=== PATIENT | male | born 1945 | race Caucasian/White ===

== ENCOUNTER 2016-09-17 11:00 | Outpatient (CLI) ==
[2016-01-23 17:10] VITALS: BMI 33.7
--- NOTE | 2016-09-17 12:01 | DI ---
EXAM: Two views of the chest. History: Cough. Comparison: Chest radiograph 01/23/2016 Findings: Heart remains mildly enlarged. No definite acute infiltrates. No appreciable pleural fl uid and no pneumothorax. Calcified granulomas are again seen within the thorax. No acute osseous a bnormalities. Impression: Mild cardiomegaly without acute disease in the chest.
== END 2016-09-17 11:01 | disposition home or self-care (01) ==
LOC: RAD 11:00
PROVIDERS: ATTEND Family Medicine
DX: R05 Cough (principal)

== ENCOUNTER 2017-06-27 08:27 | Day surgery (SDC) | payer OTHER ==
[2016-01-23 17:10] VITALS: BMI 33.7
[2017-06-27] MEDS ORDERED: LIDOCAINE 1% 20 ML MDV ID STA (09:07)
[2017-06-27] MEDS ORDERED: VERSED ONE (09:55)
[2017-06-27] MEDS ORDERED: DIPRIVAN 20 ML VIAL IVP ONE (09:55)
[2017-06-27 14:49] VITALS: BP 154/90; TEMP 97.5
--- NOTE | 2017-06-28 07:06 | OP ---
PROCEDURE: COLONOSCOPY TO THE CECUM. ENDOSCOPIST: Maryjane CHAPA M.D. INDICATION: HISTORY OF POLYPS. DATE OF LAST COLONOSCOPY 2013. INSTRUMENT: VeryLastRoom-[id number]. MEDICATION: PER ANESTHESIA. PROCEDURE: The patient was positioned for colonoscopy. The digital rectal exam was negative. The colonoscope was inserted through the anus and advanced to the cecum. The cecum was identified using the ileocecal valve and the appendiceal orifice as landmarks. The scope was slowly withdrawn through an adequately prepped colon. Two small polyps were removed in the cecal pit using snare cautery. Diverticulosis noted throughout the remaining colon, most significant in the left colon. The retroflex exam was otherwise normal. Withdrawal time 10 minutes , 4 seconds. PLAN: 1. Repeat in 5 years for surveillance after review of his pathology. CC: DR. MARKELL UMANA
== END 2017-06-27 10:50 | disposition home or self-care (01) ==
LOC: SURG 08:27
PROVIDERS: ATTEND Internal Medicine Gastroenterology
DX: Z09 Encounter for follow-up examination after completed treatment for conditions other than malignant neoplasm (principal); Z86.010 Personal history of colon polyps; D12.0 Benign neoplasm of cecum; K57.30 Diverticulosis of large intestine without perforation or abscess without bleeding

== ENCOUNTER 2017-09-27 15:59 | Outpatient (CLI) ==
[2016-01-23 17:10] VITALS: BMI 33.7
--- NOTE | 2017-09-27 16:26 | DI ---
EXAM: Cervical spine seven views HISTORY: Neck pain. FINDINGS: No comparison. General bone density appears minimally decreased. No scoliosis. Lateral masses of C1 and C2 are normally aligned and the odontoid process is intact. Mild diffuse degenerati ve changes of the spine mainly involving the facets. There is no noticeable spondylolisthesis. The spinal alignment is stable with flexion and extension. IMPRESSION: Diffuse mild to moderate degenerative changes of the spine mainly involving the facets.
== END 2017-09-27 16:00 | disposition home or self-care (01) ==
LOC: RAD 15:59
PROVIDERS: ATTEND Physician Assistant
DX: M54.2 Cervicalgia (principal)

== ENCOUNTER 2017-10-20 08:30 | Outpatient (RCR) ==
[2016-01-23 17:10] VITALS: BMI 33.7
--- NOTE | 2017-10-14 12:06 | RS.OPPTEV2 ---
Date of Note: 10/14/17 Visit #: 1 Date of Evaluation: 10/14/17 Payer Source: MEDICARE Surgery Performed?: No Treatment Diagnosis: cervical pain History of Condition/Mechanism of Injury:: pt reports has had neck pain for years, however has become worse over the past year. Prior Level of Function.....Patient was independent with: ADL's, Self Care, Work /Vocation, Ambulation/Mobility, Community Integration/Access Level of Function: pt states he normally works until 5pm, however due to neck pain and [place] has been stopping work at 3-330 Functional Limitations: Sleep, Self Care, ADL's, Lifting, Bending, Squatting Current Subjective/complaints:: pt states his neck pain is worsening, and had increased pain which leads to [place]. pt states feels it affects his concentration. Treatment Side (optional): N/A *Precautions: n/a Medical History Medical History: Unremarkable, Hypertension, CVA/TIA Surgical History Comments:: Cataract surgery 2012. Smoking Status: Never smoker Diagnostic Testing/Imaging:: cervical spine xray: diffuse mild to moderate degenerative changes of the spine mainly involving the facets. Hx Home Medications: gabapentin, fenofibrate, clopidogrel, losartin, meclizine, atorvastatin Patient's Goals: decrease neck pain Pain Assessment - Pain Description Pain Location: cervical pain L worse than R Pain Description: Tightness, Sharp, Chronic Current Pain Intensity: 5 Worst Pain Intensity: 8 Functional Outcome Measure Neck Disability Index: 21 (58%) - G Codes & Severity Modifier G Codes & Modifier: body position current CK. body position goal CI Source of G Code score: neck disability index Observation - Observation Posture: Forward Head, Rounded Shoulders, Increased Thoracic Kyphosis, Decreased Lumbar Lordosis Handedness: Right Gait - Gait Pattern General Gait Pattern Observation: Crouched Gait Gait Comments: pt amb with flexed posture General Range of Motion: WFL's BUE and LE with pain in L shld with ROM Muscle Strength: RUE 5/5. LUE grossly 4+/5 with pain L shld. BLE 5/5 - ROM Cervical Spine Range of Motion Limitations: Soft Tissue Tightness, Muscle Weakness, Pain Comments: pt cervical flex WFL's, ext significantly limited, cervical rotation to L worse than R, Lat sidebending limited B - Strength Cervical Extension: 3- Fair- Cervical Flexion: 4- Good- Cervical Rotation: 3- Fair- - Special Tests Foraminal Distraction: Positive Foraminal Compression: Negative Left, Negative Right Shoulder ROM: Bilaterally WFL's Shoulder Muscle Strength: Right WFL's - Left Shoulder Strength Left Shoulder Flexion: 4+ Good + Left Shoulder Extension: 4 Good - Special Tests Shoulder Empty Can (Supraspinatus) Test: Negative Left Shoulder Speed's Sign Test: Positive Left Comments: pt with pain in area of biceps tendon on L Palpation Palpation Findings: Tenderness, Trigger Point, Muscle Guarding Comments:: pt with tenderness cervical paraspinal muscles, trigger points noted in L upper trap, as well as paraspinals. Muscle guarding noted throughout cervical musculature L worse than R. Sensation - Sensation Right Upper Extremity: Impaired Left Upper Extremity: Impaired Right Lower Extremity: Intact/Normal Left Lower Extremity: Intact/Normal Comments: occasional numbness and tingling B hands Balance - Sitting Balance Static Sitting Balance: Normal Dynamic Sitting Balance: Normal - Standing Balance Static Standing Balance: Normal Dynamic Standing Balance: Normal - Treatment Modality: Electrical Stim Unattended Parameters/Method Applied: IFC x 20 mins at 12ma Treatment Area: cervical spine Patient Position: Sitting - Heat/Cryotherapy Treatment: Cryotherapy Comments:: cervical spine Interventions - Exercise/Activities/Manual Therapy Exercises/Activities: pt performed cervical retraction, upper trap stretch, scalene stretch, scapular retraction. Manual Therapy: n/a HOME EXERCISE PROGRAM: pt given written HEP including upper trap stretch, scalene stretch, corner stretch, cervical retraction, scapular retraction - Charges Timed Code Treatment Minutes: 42 Total Treatment Time: 61 Procedures billed for this date of service:: eval med, estim unattended, cp EVALUATION COMPLEXITY LEVEL EVALUATION COMPLEXITY LEVEL: HISTORY: Medium (TIA, HTN, cervical pain), EXAM OF BODY SYSTEMS: Medium (pain, posture, ROM, strength), CLINICAL PRESENTATION: Medium (evolving), CLINICAL DECISION MAKING: Medium Assessment Assessment: pt presents with cervical pain, increased muscle tightness, cervical paraspinal, upper trap, scalenes as well as limited cervical ROM. Patient Education: Home Exercise Program, Education of Plan of Care Rehab Potential: Good Short Term Goals Goal #1: pt independent with initial HEP Goal to be met by: 10/28/17 Goal #2: pt rate pain <5/10 cervical Goal to be met by: 10/28/17 Goal #3: pt able to perform cervical ext to neutral Goal to be met by: 10/28/17 Goal #4: Decreased tightness upper trap and scalene. Goal to be met by: 10/28/17 [employer]n [employer] Goals Goal #1: pt rate pain <3/10 Goal to be met by: 11/11/17 Goal #2: pt with cervical ROM WFL's Goal to be met by: 11/11/17 Goal #3: pt able to work full 8 hours with decreased pain Goal to be met by: 11/11/17 Goal #4: . Plan - Treatment to be Provided Procedures: Therapeutic Exercises, Therapeutic Activity, Manual Therapy, Patient Education Modalities: Electrical Stimulation, Ultrasound/Phonophoresis, Class IV Laser, Cryotherapy, Hot Packs, Mechanical Traction - Treatment Plan Frequency: 2-3x a week Duration: 4 weeks ORDER # VISITS AND/OR THROUGH DATE: 11/11/17 - Treatment Code (1) Cervical pain Code(s): M54.2 - CERVICALGIA (2) Muscle tightness Code(s): M62.89 - OTHER SPECIFIED DISORDERS OF MUSCLE
--- NOTE | 2017-10-18 14:33 | RS.OPPTDN ---
Subjective Date of Note: 10/18/17 Visit #: 2 Date of Evaluation: 10/14/17 Payer Source: MEDICARE Treatment Diagnosis: cervical pain Current Subjective/complaints:: Patient reports moderate neck pain today ,with tingling into both UE ' s and hands,worse in the L hand as compared to the R . *Precautions: n/a Pain Assessment - Pain Description Pain Location: neck , UE's and hands Pain Description: Radiating, Aching Current Pain Intensity: 4/10 Other Comments regarding Pain:: The pain does not interfere with sleeping . - Treatment Modality: Ultrasound Parameters/Method Applied: 10 mins. @ 1.5 w/cm2 to cervical/UT's. Patient Position: Sitting - Heat/Cryotherapy Treatment: Hot Pack (20 mins. prior to US and traction.) - Traction Treatment Method: Mechanical, Intermittent, Cervical Patient Position: Supine Amount of Force Applied: 15 Hold Time: 30 secs. Rest Time: 5 secs. Duration of treatment: 15 mins. Interventions - Exercise/Activities/Manual Therapy Exercises/Activities: HEP review only today for stretchimng. Total minutes of Exercise: 0 Manual Therapy: n/a Total minutes of Manual Therapy: 0 HOME EXERCISE PROGRAM: pt given written HEP including upper trap stretch, scalene stretch, corner stretch, cervical retraction, scapular retraction - Charges Timed Code Treatment Minutes: 25 Total Treatment Time: 45 Procedures billed for this date of service:: hp,US,traction Assessment: Tolerates treatment well,is attentive to HEP recommendations.He has no increase in pain during traction today.his cervical pin does not currently affect his sleep. Patient Education: Body/Joint mechanics, Home Exercise Program, Education of Plan of Care Short Term Goals Goal #1: pt independent with initial HEP Goal to be met by: 10/28/17 Progress towards Goal:: Progressing Goal #2: pt rate pain <5/10 cervical Goal to be met by: 10/28/17 Progress towards Goal:: Progressing Goal #3: pt able to perform cervical ext to neutral Goal to be met by: 10/28/17 Goal #4: Decreased tightness upper trap and scalene. Goal to be met by: 10/28/17 Assisted Goals Goal #1: pt rate pain <3/10 Goal to be met by: 11/11/17 Goal #2: pt with cervical ROM WFL's Goal to be met by: 11/11/17 Goal #3: pt able to work full 8 hours with decreased pain Goal to be met by: 11/11/17 Goal #4: . Plan PLAN OF CARE EXPIRES ON:: 11/11/17 ORDER # VISITS AND/OR THROUGH DATE: 11/11/17 PLAN: Continue PT to improve cervical posture,eliminate /reduce pain,educate patient for joint protection.
--- NOTE | 2017-10-20 09:49 | RS.OPPTDN ---
Subjective Date of Note: 10/20/17 Visit #: 3 Date of Evaluation: 10/14/17 Payer Source: MEDICARE Treatment Diagnosis: cervical pain Current Subjective/complaints:: Patient reports feeling better today,less soreness present ,feels it is easier to hold his head more upright. *Precautions: n/a Pain Assessment - Pain Description Pain Location: cervical /upper traps Pain Description: Tightness, Dull, Aching Current Pain Intensity: 0 - Treatment Modality: Ultrasound Parameters/Method Applied: 10 mins. @ 1.5 w/cm2,continuous mode to cervical /UT area. Patient Position: Sitting - Heat/Cryotherapy Treatment: Hot Pack (20 mins. prior to US and exercises) - Traction Treatment Method: Mechanical, Intermittent, Cervical Patient Position: Supine Amount of Force Applied: 16-17 Hold Time: 30 secs. Rest Time: 5 secs. Duration of treatment: 20 mins. Traction Treatment Comment: Tolerates well. Interventions - Exercise/Activities/Manual Therapy Exercises/Activities: HEP review ,including stretches ,posture awareness, ergonomics. Total minutes of Exercise: 0 Manual Therapy: n/a Total minutes of Manual Therapy: 0 HOME EXERCISE PROGRAM: pt given written HEP including upper trap stretch, scalene stretch, corner stretch, cervical retraction, scapular retraction - Charges Timed Code Treatment Minutes: 30 Total Treatment Time: 50 Procedures billed for this date of service:: hp,US,traction Assessment: Patient reports the intensity and duration of neck pain is improving.He has good understanding of HEP.He demos improved ability to extend the neck with less difficulty.He is compliant to recommendations of the therapy staff. Patient Education: Education of diagnosis, Body/Joint mechanics, Home Exercise Program, Home Safety, Activity Modification, Education of Plan of Care Patient demonstrates compliance with HEP?: Yes Short Term Goals Goal #1: pt independent with initial HEP Goal to be met by: 10/28/17 Progress towards Goal:: Progressing Goal #2: pt rate pain <5/10 cervical Goal to be met by: 10/28/17 Progress towards Goal:: Progressing Goal #3: pt able to perform cervical ext to neutral Goal to be met by: 10/28/17 Progress towards Goal:: Progressing Goal #4: Decreased tightness upper trap and scalene. Goal to be met by: 10/28/17 Progress towards Goal:: Progressing Care Home Goals Goal #1: pt rate pain <3/10 Goal to be met by: 11/11/17 Goal #2: pt with cervical ROM WFL's Goal to be met by: 11/11/17 Progress towards goal: Progressing Goal #3: pt able to work full 8 hours with decreased pain Goal to be met by: 11/11/17 Progress towards goal: Progressing Goal #4: . Plan PLAN OF CARE EXPIRES ON:: 11/11/17 ORDER # VISITS AND/OR THROUGH DATE: 11/11/17 PLAN: Continue PT to redice/eliminate cervical pain.
== END 2017-10-20 23:59 | disposition short-term general hospital (02) ==
PROVIDERS: ATTEND Physician Assistant
DX: M54.2 Cervicalgia (principal)

== ENCOUNTER 2017-11-10 08:00 | Outpatient (RCR) ==
[2016-01-23 17:10] VITALS: BMI 33.7
--- NOTE | 2017-10-25 09:13 | RS.OPPTDN ---
Subjective Date of Note: 10/25/17 Visit #: 4 Date of Evaluation: 10/14/17 Payer Source: MEDICARE Treatment Diagnosis: cervical pain Current Subjective/complaints:: Patient reports generally around 3:30 in the afternoon the neck discomfort elevates,making it difficult to concentrate.He has no pain at this time.We discussed for him to assess his work environment , to assist with positioning of his head while reading,etc. *Precautions: n/a Pain Assessment - Pain Description Pain Location: neck Pain Description: Dull, Aching Current Pain Intensity: 0 Worst Pain Intensity: 8 - Treatment Modality: Ultrasound Parameters/Method Applied: 10 mins. @ 1.5 w/cm2 to cervical /upper traps., continuous mode. Patient Position: Sitting - Heat/Cryotherapy Treatment: Hot Pack (20 mins. prior to US and manual therapy.) Interventions - Exercise/Activities/Manual Therapy Exercises/Activities: HEP review ,including stretches ,posture awareness, ergonomics. Total minutes of Exercise: 0 Manual Therapy: 20 mins. deep tissue massage to upper traps,/cervical region . Total minutes of Manual Therapy: 20 HOME EXERCISE PROGRAM: pt given written HEP including upper trap stretch, scalene stretch, corner stretch, cervical retraction, scapular retraction - Charges Timed Code Treatment Minutes: 30 Total Treatment Time: 50 Procedures billed for this date of service:: hp,US,manual therepy Assessment: Patient has good erythmic response from soft tissue mobilizations.He has moderate increased tone in the upper traps ,as he presents with forward head posturing.He is more aware of head positioning and posture .He reports no difficulty with HEP. Patient Education: Education of diagnosis, Body/Joint mechanics, Home Exercise Program, Home Safety, Activity Modification, Education of Plan of Care Patient demonstrates compliance with HEP?: Yes Short Term Goals Goal #1: pt independent with initial HEP Goal to be met by: 10/28/17 Progress towards Goal:: Progressing Goal #2: pt rate pain <5/10 cervical Goal to be met by: 10/28/17 Progress towards Goal:: Progressing Goal #3: pt able to perform cervical ext to neutral Goal to be met by: 10/28/17 Progress towards Goal:: Progressing Goal #4: Decreased tightness upper trap and scalene. Goal to be met by: 10/28/17 Progress towards Goal:: Progressing Manager Social Work Goals Goal #1: pt rate pain <3/10 Goal to be met by: 11/11/17 Goal #2: pt with cervical ROM WFL's Goal to be met by: 11/11/17 Progress towards goal: Progressing Goal #3: pt able to work full 8 hours with decreased pain Goal to be met by: 11/11/17 Progress towards goal: Progressing Goal #4: . Plan PLAN OF CARE EXPIRES ON:: 11/11/17 ORDER # VISITS AND/OR THROUGH DATE: 11/11/17 PLAN: Continue PT to reduce/eliminate cervical pain ,improve awareness of posture .
--- NOTE | 2017-10-27 09:38 | RS.OPPTDN ---
Subjective Date of Note: 10/27/17 Visit #: 5 Date of Evaluation: 10/14/17 Payer Source: MEDICARE Treatment Diagnosis: cervical pain Current Subjective/complaints:: Patient says treatment seems to be helping. Reports less tension in his neck and he can retract his neck much easier allowing him to now lay supine with actually causing relief. Mr. Jules admits to performing HEP with improved ease as well. *Precautions: n/a Pain Assessment - Pain Description Pain Location: L UT > R - Treatment Modality: Ultrasound Parameters/Method Applied: continuous @ 1.5 w/cm2 x 10 mins > on L than R UT Patient Position: Sitting - Heat/Cryotherapy Treatment: Hot Pack (cervical in sitting x 15 mins) Interventions - Exercise/Activities/Manual Therapy Exercises/Activities: Patient review of HEP, postural techniques for home/work, and given green tband to use for scap retraction. Patient performed several reps in dept with correctly and without difficulty. Manual Therapy: 20 mins. deep tissue massage to upper traps,/cervical region including cross stretching for the L SB. HOME EXERCISE PROGRAM: pt given written HEP including upper trap stretch, scalene stretch, corner stretch, cervical retraction, scapular retraction - Charges Timed Code Treatment Minutes: 30 Total Treatment Time: 45 Procedures billed for this date of service:: hp, u/s, mt Assessment: Patient appears to be responding well to treatment demo improved cervical retraction, decreased muscle guarding, and improved admission of laying supine and concentration. Patient Education: Education of diagnosis, Body/Joint mechanics, Home Exercise Program Patient demonstrates compliance with HEP?: Yes Short Term Goals Goal #1: pt independent with initial HEP Goal to be met by: 10/28/17 Progress towards Goal:: Progressing Goal #2: pt rate pain <5/10 cervical Goal to be met by: 10/28/17 Progress towards Goal:: Progressing Goal #3: pt able to perform cervical ext to neutral Goal to be met by: 10/28/17 Progress towards Goal:: Progressing Goal #4: Decreased tightness upper trap and scalene. Goal to be met by: 10/28/17 Progress towards Goal:: Progressing Sheet Folder Goals Goal #1: pt rate pain <3/10 Goal to be met by: 11/11/17 Goal #2: pt with cervical ROM WFL's Goal to be met by: 11/11/17 Progress towards goal: Progressing Goal #3: pt able to work full 8 hours with decreased pain Goal to be met by: 11/11/17 Progress towards goal: Progressing Goal #4: . Plan PLAN OF CARE EXPIRES ON:: 11/11/17 ORDER # VISITS AND/OR THROUGH DATE: 11/11/17 PLAN: Patient to continue with modalities and progressing postural strengthening.
--- NOTE | 2017-10-28 09:29 | RS.OPPTDN ---
Subjective Date of Note: 10/28/17 Visit #: 6 Date of Evaluation: 10/14/17 Payer Source: MEDICARE Treatment Diagnosis: cervical pain Current Subjective/complaints:: Patient continues to feel the therapy is helping.No current pain . *Precautions: n/a Pain Assessment - Pain Description Pain Location: neck Pain Description: Tightness, Dull, Aching Current Pain Intensity: 0 - Treatment Modality: Ultrasound Parameters/Method Applied: 10 mins. ,continuous mode @ 1.5 w/cm2 to cervical / upper traps region. Patient Position: Sitting - Heat/Cryotherapy Treatment: Hot Pack (20 mins. prior to US and manual therapy.) Interventions - Exercise/Activities/Manual Therapy Exercises/Activities: N/A today . Manual Therapy: 20 mins. deep tissue massage to upper traps,/cervical region. Total minutes of Manual Therapy: 20 HOME EXERCISE PROGRAM: pt given written HEP including upper trap stretch, scalene stretch, corner stretch, cervical retraction, scapular retraction - Charges Timed Code Treatment Minutes: 30 Total Treatment Time: 50 Procedures billed for this date of service:: hp,US,manual therapy Assessment: Patient continues to be compliant to HEP ,is doing the theraband exercises that were added to his HEP.He reprts resting more comfortably in supine.feels the cervical area is less tight . Patient Education: Body/Joint mechanics, Home Exercise Program, Activity Modification Patient demonstrates compliance with HEP?: Yes Short Term Goals Goal #1: pt independent with initial HEP Goal to be met by: 10/28/17 Progress towards Goal:: Partially Met Goal #2: pt rate pain <5/10 cervical Goal to be met by: 10/28/17 Progress towards Goal:: Partially Met Goal #3: pt able to perform cervical ext to neutral Goal to be met by: 10/28/17 Progress towards Goal:: Progressing Goal #4: Decreased tightness upper trap and scalene. Goal to be met by: 10/28/17 Progress towards Goal:: Progressing Executive Personal Assistant Goals Goal #1: pt rate pain <3/10 Goal to be met by: 11/11/17 Progress towards goal: Progressing Goal #2: pt with cervical ROM WFL's Goal to be met by: 11/11/17 Progress towards goal: Partially Met Goal #3: pt able to work full 8 hours with decreased pain Goal to be met by: 11/11/17 Progress towards goal: Progressing Goal #4: . Plan PLAN OF CARE EXPIRES ON:: 11/11/17 ORDER # VISITS AND/OR THROUGH DATE: 11/11/17 PLAN: Continue PT to improve posture,eliminate or reduce cervical pain .
--- NOTE | 2017-11-01 09:21 | RS.OPPTDN ---
Subjective Date of Note: 11/01/17 Visit #: 7 Date of Evaluation: 10/14/17 Payer Source: MEDICARE Treatment Diagnosis: cervical pain Current Subjective/complaints:: Reports the therapy is helping,no current pain present .He continues to do his HEP. *Precautions: n/a Pain Assessment - Pain Description Pain Location: cervical/upper traps Current Pain Intensity: 0 - Treatment Modality: Ultrasound Parameters/Method Applied: 10 mins. @ 1.5 w/cm2,continuous mode to cervical/ upper traps. Patient Position: Sitting - Heat/Cryotherapy Treatment: Hot Pack (20 mins. prior to US and manual therapy) Interventions - Exercise/Activities/Manual Therapy Exercises/Activities: HEP review only. Total minutes of Exercise: 0 Manual Therapy: 20 mins. deep tissue massage to upper traps,/cervical region. Total minutes of Manual Therapy: 20 HOME EXERCISE PROGRAM: pt given written HEP including upper trap stretch, scalene stretch, corner stretch, cervical retraction, scapular retraction - Charges Timed Code Treatment Minutes: 30 Total Treatment Time: 50 Procedures billed for this date of service:: hp,US,manual therapy Assessment: Patient has decreased tone in the upper traps,improved cervical motion with less pain present.He is very attentive and compliant to HEP.He does still have headaches ,with different levels of pain ,dependemt upon his amount of daily activities. Patient Education: Home Exercise Program, Activity Modification, Education of Plan of Care Patient demonstrates compliance with HEP?: Yes Short Term Goals Goal #1: pt independent with initial HEP Goal to be met by: 10/28/17 Progress towards Goal:: Met Goal #2: pt rate pain <5/10 cervical Goal to be met by: 10/28/17 Progress towards Goal:: Partially Met Goal #3: pt able to perform cervical ext to neutral Goal to be met by: 10/28/17 Progress towards Goal:: Partially Met Goal #4: Decreased tightness upper trap and scalene. Goal to be met by: 10/28/17 Progress towards Goal:: Progressing [employer] Binding Folder Goals Goal #1: pt rate pain <3/10 Goal to be met by: 11/11/17 Progress towards goal: Progressing Goal #2: pt with cervical ROM WFL's Goal to be met by: 11/11/17 Progress towards goal: Partially Met Goal #3: pt able to work full 8 hours with decreased pain Goal to be met by: 11/11/17 Progress towards goal: Progressing Goal #4: . Plan PLAN OF CARE EXPIRES ON:: 11/11/17 ORDER # VISITS AND/OR THROUGH DATE: 11/11/17 PLAN: Continue PT to reduce forward head rounded shoulders posture ,reduce or eliminate cervical pain.
--- NOTE | 2017-11-04 09:06 | RS.OPPTDN ---
Subjective Date of Note: 11/04/17 Visit #: 8 Date of Evaluation: 10/14/17 Payer Source: MEDICARE Treatment Diagnosis: cervical pain Current Subjective/complaints:: Patient reprts no headache yesterday afternoon at work,continues to feel better. *Precautions: n/a Pain Assessment - Pain Description Pain Location: cervical /upper traps Current Pain Intensity: 0 - Treatment Modality: Ultrasound Parameters/Method Applied: 10 mins. @ 1.5 w/cm2,continuous mode to cervical/ upper traps redion. Patient Position: Sitting - Heat/Cryotherapy Treatment: Hot Pack (20 mins. prior to US) Interventions - Exercise/Activities/Manual Therapy Exercises/Activities: N/A Total minutes of Exercise: 0 Manual Therapy: 20 mins. deep tissue massage to upper traps,/cervical region , and medial borders of scapulae . Total minutes of Manual Therapy: 20 HOME EXERCISE PROGRAM: pt given written HEP including upper trap stretch, scalene stretch, corner stretch, cervical retraction, scapular retraction - Charges Timed Code Treatment Minutes: 30 Total Treatment Time: 50 Procedures billed for this date of service:: hp,US,manual Assessment: Proressing well,less frequencyand intensity of neck pain and headaches.He is compliant to HEP,has better cervical ROM . Patient Education: Education of diagnosis, Body/Joint mechanics, Home Exercise Program, Home Safety, Activity Modification, Education of Plan of Care Patient demonstrates compliance with HEP?: Yes Short Term Goals Goal #1: pt independent with initial HEP Goal to be met by: 10/28/17 Progress towards Goal:: Met Goal #2: pt rate pain <5/10 cervical Goal to be met by: 10/28/17 Progress towards Goal:: Partially Met Goal #3: pt able to perform cervical ext to neutral Goal to be met by: 10/28/17 Progress towards Goal:: Partially Met Goal #4: Decreased tightness upper trap and scalene. Goal to be met by: 10/28/17 Progress towards Goal:: Progressing [employer] Goals Goal #1: pt rate pain <3/10 Goal to be met by: 11/11/17 Progress towards goal: Progressing Goal #2: pt with cervical ROM WFL's Goal to be met by: 11/11/17 Progress towards goal: Partially Met Goal #3: pt able to work full 8 hours with decreased pain Goal to be met by: 11/11/17 Progress towards goal: Progressing Goal #4: . Plan PLAN OF CARE EXPIRES ON:: 11/11/17 ORDER # VISITS AND/OR THROUGH DATE: 11/11/17 PLAN: Continue PT to improve cervical posture ,reduce/eliminate headaches and cervical pain.
--- NOTE | 2017-11-08 09:06 | RS.OPPTDN ---
Subjective Date of Note: 11/08/17 Visit #: 9 Date of Evaluation: 10/14/17 Payer Source: MEDICARE Treatment Diagnosis: cervical pain Current Subjective/complaints:: Patient reports his cervical extension and more upright posture in general feels more natural now.He is compliant to HEP. *Precautions: n/a Pain Assessment - Pain Description Pain Location: neck/upper traps when present Current Pain Intensity: 0 - Treatment Modality: Ultrasound Parameters/Method Applied: 10 mins. @ 1.5 w/cm2,continuous mode to cervical/ uppertrap sregion. Patient Position: Sitting - Heat/Cryotherapy Treatment: Hot Pack (20 mins. prior to US and manual therapy) Interventions - Exercise/Activities/Manual Therapy Exercises/Activities: Independent with HEP. Total minutes of Exercise: 0 Manual Therapy: 20 mins. deep tissue massage to upper traps,/cervical region , and medial borders of scapulae . Total minutes of Manual Therapy: 20 HOME EXERCISE PROGRAM: pt given written HEP including upper trap stretch, scalene stretch, corner stretch, cervical retraction, scapular retraction - Charges Timed Code Treatment Minutes: 30 Total Treatment Time: 50 Procedures billed for this date of service:: hp,US,manual therapy Assessment: Patient progressing well,enters clionic today with more erect posture ,especially in the cervical area ( better extension ).He is tolerating his work day with less frequent headaches.He has good understanding of HEP, increased awareness of posture and ergonomics. Patient Education: Body/Joint mechanics, Home Exercise Program, Education of Plan of Care Patient demonstrates compliance with HEP?: Yes Short Term Goals Goal #1: pt independent with initial HEP Goal to be met by: 10/28/17 Progress towards Goal:: Met Goal #2: pt rate pain <5/10 cervical Goal to be met by: 10/28/17 Progress towards Goal:: Partially Met Goal #3: pt able to perform cervical ext to neutral Goal to be met by: 10/28/17 Progress towards Goal:: Partially Met Goal #4: Decreased tightness upper trap and scalene. 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 Plan PLAN OF CARE EXPIRES ON:: 11/11/17 ORDER # VISITS AND/OR THROUGH DATE: 11/11/17 PLAN: Cotin[facility] PT to eliminate headaches ,cervical pain ,improve sitting / standing posture,improve overall level of function.
--- NOTE | 2017-11-10 09:20 | RS.OPPTDN ---
Subjective Date of Note: 11/10/17 Visit #: 10 Date of Evaluation: 10/14/17 Payer Source: MEDICARE Treatment Diagnosis: cervical pain Current Subjective/complaints:: Pleased with his progress,agrees with D/C plan today. *Precautions: n/a Pain Assessment - Pain Description Pain Location: cervical/uppertraps Current Pain Intensity: 0 - Heat/Cryotherapy Treatment: Hot Pack (20 mins. prior to manual therapy) Interventions - Exercise/Activities/Manual Therapy Exercises/Activities: Independent with HEP. Total minutes of Exercise: 0 Manual Therapy: 30 mins. deep tissue massage to upper traps,/cervical region , and medial borders of scapulae . Total minutes of Manual Therapy: 30 HOME EXERCISE PROGRAM: pt given written HEP including upper trap stretch, scalene stretch, corner stretch, cervical retraction, scapular retraction - Objective Findings Observations,measurements,etc.: Cervical extension to neutral actively,rotation to 45 L and R. - Charges Timed Code Treatment Minutes: 30 Total Treatment Time: 50 Procedures billed for this date of service:: hp,ex 2 Assessment: Patient progressed well ,met rehab goals .He is aware of D/C plan today. Patient Education: Education of diagnosis, Body/Joint mechanics, Home Exercise Program, Home Safety, Activity Modification, Education of Plan of Care Patient demonstrates compliance with HEP?: Yes Short Term Goals Goal #1: pt independent with initial HEP Goal to be met by: 10/28/17 Progress towards Goal:: Met Goal #2: pt rate pain <5/10 cervical Goal to be met by: 10/28/17 Progress towards Goal:: Met Goal #3: pt able to perform cervical ext to neutral Goal to be met by: 10/28/17 Progress towards Goal:: Met Goal #4: Decreased tightness upper trap and scalene. 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 Plan PLAN OF CARE EXPIRES ON:: 11/11/17 ORDER # VISITS AND/OR THROUGH DATE: 11/11/17 PLAN: D/C
--- NOTE | 2017-11-14 16:23 | RS.OPPTDC ---
Date of Discharge: 11/10/17 Date of Evaluation: 10/14/17 Number of Visits: 10 Treatment Diagnosis: cervical pain Current Level of Function: pt with decreased muscle tightness/tone in upper traps. pt with cervical extension to neutral. Rotation to 45 L, R 45 with no pain. Current Complaints/Gains: pt is pleased with his progress, less frequent and less intense headaches and less tingling in hands. pt reports longer distance drives bother him, but tolerates local driving without difficulty. Pain Assessment - Pain Description Pain Location: cervical pain Functional Outcome Measure Neck Disability Index: 13 - G Codes & Severity Modifier G Codes & Modifier: body position goal CI. body position dc CJ Source of G Code score: neck disability index Observation - Observation Posture: Forward Head, Rounded Shoulders, Increased Thoracic Kyphosis, Decreased Lumbar Lordosis Gait - Gait Pattern General Gait Pattern Observation: No Deviations/Normal General Range of Motion: BUe and BLE WFL's Muscle Strength: BUE and LE WFL's Interventions - Exercise/Activities/Manual Therapy Exercises/Activities: na Manual Therapy: n/a HOME EXERCISE PROGRAM: pt given written HEP including upper trap stretch, scalene stretch, corner stretch, cervical retraction, scapular retraction - Charges Timed Code Treatment Minutes: na Total Treatment Time: n/a Procedures billed for this date of service:: n/a Assessment Assessment: pt has met all goals. pt with much improvement with pain and decreased muscle tightness. Patient Education: Home Exercise Program, Education of Plan of Care Rehab Potential: Good Short Term Goals Goal #1: pt independent with initial HEP Goal to be met by: 10/28/17 Progress towards Goal:: Met Goal #2: pt rate pain <5/10 cervical Goal to be met by: 10/28/17 Progress towards Goal:: Met Goal #3: pt able to perform cervical ext to neutral Goal to be met by: 10/28/17 Progress towards Goal:: Met Goal #4: Decreased tightness upper trap and scalene. 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 Plan Reason for Discharge:: All Goals Met
== END 2017-11-19 23:59 ==
PROVIDERS: ATTEND Physician Assistant
DX: M54.2 Cervicalgia (principal); M62.89 Other specified disorders of muscle

== ENCOUNTER 2024-06-20 10:27 | Observation (INO) ==
[2024-06-20 10:43] VITALS: BMI 33.5
[2024-06-20] MEDS: ZOFRAN SDV IVP ONE (10:58)
[2024-06-20] MEDS: MORPHINE 4 MG/ML SYRINGE IVP ONE (11:00)
[2024-06-20 11:04] LABS: BASOPHILS % (AUTO) 0.5 % (0.0-3.0); EOSINOPHILS % (AUTO) 0.6 % (0.0-7.0); HEMATOCRIT 44.6 % (42.0-52.0); HEMOGLOBIN 14.7 g/dl (14.0-18.0); IMMATURE GRANULOCYTE % (AUTO) 0.3 % (0.0-5.0); LYMPHOCYTES # (AUTO) 0.8 K/uL (0.60-3.4); LYMPHOCYTES % (AUTO) 12.6 (10.0-50.0); MEAN CORPUSCULAR HEMOGLOBIN 31.3 pg (27.0-31.0); MEAN CORPUSCULAR VOLUME 95.1 fl (80.0-94.0); MONOCYTES # (AUTO) 0.5 K/uL (0.4-2.0); MONOCYTES % (AUTO) 7.7 (0-10); NEUTROPHILS # (AUTO) 5.1 K/ul (2.0-6.9); NEUTROPHILS % (AUTO) 78.3 % (42.2-75.2); PLATELET COUNT 190 10^3/uL (140-440); RED BLOOD COUNT 4.69 10^6/ul (4.70-6.10); WHITE BLOOD COUNT 6.52 K/ul (4.2-10.2)
--- NOTE | 2024-06-20 11:09 | DI ---
EXAM: CHEST RADIOGRAPH TECHNIQUE: Single frontal chest radiograph. HISTORY: Trauma. COMPARISON: 09/17/1969 and. FINDINGS: Lungs/Pleura: The lungs are clear. There is no pleural effusion. There is no pneumothorax. Lung volu mes are low. Heart: The heart size is normal. Bones: Unremarkable. Other: None. IMPRESSION: 1. No acute findings.
[2024-06-20] MEDS: SODIUM CHLORIDE 1,000 ML IV ONE (11:33)
--- NOTE | 2024-06-20 11:33 | CT ---
EXAM: CT HEAD WITHOUT CONTRAST. HISTORY: Head trauma. COMPARISON: 01/23/2016. TECHNIQUE: Multiple axial images of the brain were obtained from the skull base through the vertex w ithout intravenous contrast. Multiplanar reformats were provided. FINDINGS: There is no intracranial hemorrhage or extraaxial collection. The perez-white differentiat ion is maintained without evidence for acute large vascular territory infarction. There are areas of periventricular and subcortical white matter low attenuation. The cortical sulci and cerebral ventr icles are symmetrically enlarged. The basal cisterns are well visualized. There is no hydrocephalus , mass effect, or midline shift. The paranasal sinuses demonstrate mild mucosal thickening. The mas toid air cells are clear. The calvarium is intact. Since the prior study, there has been no signifi cant interval change. IMPRESSION: 1. No acute intracranial abnormality. 2. Chronic small vessel ischemic changes and atrophy. All CT scans are performed using dose optimization techniques as appropriate to the performed exam an d include at least one of the following: Automated exposure control, adjustment of the mA and/or kV according t o size, and the use of iterative reconstruction technique.
--- NOTE | 2024-06-20 11:34 | CT ---
EXAM: CERVICAL SPINE CT WITHOUT CONTRAST HISTORY: Trauma. TECHNIQUE: CT was performed of the cervical spine. Sagittal and coronal reconstructions were utiliz ed for this examination. COMPARISON: None. FINDINGS: Normal cervical lordosis maintained. Scoliosis. Retrolisthesis of C2 on C3 measuring 0.2 cm. Bigg listhesis of C4 on C5 measuring 0.2 cm. Vertebral body heights are maintained. The dens is intact. Lateral masses C1 are well-aligned. No acute fracture. Endplate degenerative changes and mild disc space narrowing at C6-C7 level. No prevertebral soft tissue swelling. Multilevel degenerative spondylosis resulting in varying degrees of spinal canal stenosis and neural foraminal narrowing. Atelectasis and/or pneumonitis in the right lung base. IMPRESSION: No acute fracture. Mild spondylolisthesis likely degenerative in nature. Consider MRI if occult fracture is suspected.. All CT scans are performed using dose optimization techniques as appropriate to the performed exam an d include at least one of the following: Automated exposure control, adjustment of the mA and/or kV according t o size, and the use of iterative reconstruction technique.
--- NOTE | 2024-06-20 11:38 | CT ---
EXAM: CT SCAN CHEST WITHOUT CONTRAST HISTORY: Trauma COMPARISON: None. FINDINGS: Helically acquired axial images obtained through the thorax without contrast utilizing 5-m m collimation. Sagittal and coronal reconstructions were imaged and reviewed.. The thoracic inlet i s unremarkable. The heart is normal in size with coronary ASVD. There are subcentimeter mediastinal lymph nodes. No consolidation or effusion. Minimal scarring versus atelectasis posterior right upp er lobe area. There is displaced right midclavicular fracture.. The visualized upper abdominal stru ctures are unremarkable. IMPRESSION: No acute intrathoracic findings. Displaced right midclavicular fracture All CT scans are performed using dose optimization techniques as appropriate to the performed exam an d include at least one of the following: Automated exposure control, adjustment of the mA and/or kV according t o size, and the use of iterative reconstruction technique.
[2024-06-20 11:45] LABS: ALANINE AMINOTRANSFERASE 27.5 U/L (0-50); ALBUMIN 4.85 g/dL (3.5-5.0); ALKALINE PHOSPHATASE 65.8 U/L (56-119); ASPARTATE AMINO TRANSFERASE 34.8 U/L (17-59); BILIRUBIN,TOTAL 1.12 mg/dL (0.2-1.3); CALCIUM 9.48 mg/dL (8.4-10.2); CARBON DIOXIDE 21.5 mmol/L (22-30.0); CHLORIDE 103.7 mmol/L (98-107); CREATININE 1.19 mg/dL (0.60-1.10); GLUCOSE 128.6 mg/dL (74-106); LIPASE 326.6 U/L (23-300); POTASSIUM 4.05 mmol/L (3.5-5.1); SODIUM 137.3 mmol/L (134.5-145); TOTAL PROTEIN 8.18 g/dL (6.3-8.2)
[2024-06-20 11:55] LABS: TROPONIN I < 0.012 ng/ml (0.0000-0.120)
[2024-06-20] MEDS ORDERED: VISIPAQUE 320 MG/ML 100ML IVP ONE (12:08)
--- NOTE | 2024-06-20 12:14 | ED.PDOC ---
General ED Provider: Dr. MAGGIE STEWART, DO Chief Complaint: Multiple Trauma Stated Complaint: 79-year-old gentleman brought in by family members with complaints of being hit in the chest by a cow. Evidently it sounds as though it kicked him throwing him backwards against a wall patient did strike his head with an LOC has incomplete recollection of what happened today primary complaint of right shoulder pain and the patient is pending but denies chest pain or that his breathing is an issue. He denies any neck injury but on palpation was tender c-collar was immediately applied. Denies abdominal injuries no lower extremity complaints. Normal state of health prior no recent illness Patient is perseverating somewhat Time Seen by Provider: 06/20/24 10:44 Mode of Arrival: Walk-In Information Source: Patient and Family Primary Care Provider: FLORECITA DE LA TORRE MD Nursing and Triage Documentation Reviewed and Agree: Yes What is Opioid Naive?: *Opioid Naive implies the patient is not already taking opioids or not chronically receiving opioids on a daily basis. *PRN dosing is not "usually" associated with tolerance. *Patients are at higher risk of over-sedation and aspiration. What is Opioid Tolerant?: *Opioid Tolerance implies less than the expected response to an opioid. *Acquired tolerance is defined by the patient taking 60mg of oral morphine daily (or equianalgesic dose of another opioid) for 1 week or more. *Often associated with chronic pain. *May take more than usual dose to achieve desired pain control. Review of Systems Review Of Systems Constitutional: Reports No symptoms Eyes: Reports No symptoms Ears, Nose, Mouth, Throat: Reports No symptoms Respiratory: Reports No symptoms Cardiac: Reports No symptoms GI: Reports No symptoms : Reports No symptoms Musculoskeletal: Denies Neck pain Skin: Reports No symptoms Hematologic/Lymphatic: Reports Other (On Plavix) [facility] Medical History Anal fistula K60.3 - Anal fistula (ICD-10) Prostate cancer C61 - Malignant neoplasm of prostate (ICD-10) Social History Smoking and tobacco status: Never smoker Substance use type: does not use Household members: spouse Housing: house Marital status: M Lives independently: No Current occupational status: employed 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 Pets and animals: Yes (dog and cat) Do you think of yourself as: straight/heterosexual Current gender identity: male Seatbelt use: always Helmet use: Yes Drives intoxicated or rides with intoxicated subway train driver: No Water heater temperature set < 120 degrees: Yes Working smoke detector in home: Yes Fire extinguisher in home: Yes Carbon monoxide detector in home: Yes Firearms in home: Yes Physical Exam Physical Exam Appearance: Reports Ill-appearing Pain Distress: Moderate Eyes: Reports THOM, EOMI and Conjunctiva clear ENT: Reports Nose normal, Oropharynx normal and Other (Right sided hemotympanum otherwise ear exam normal) Neck: Supple (C-collar applied) Respiratory: Reports Airway patent Cardiovascular: Reports RRR GI/: Reports Soft, Nontender, No masses, Bowel sounds normal and No Organomegaly; Denies Tender Musculoskeletal: Reports Other (Full skeletal exam negative except for pain anterior right shoulder. Decreased range of motion) Skin: Reports Warm and Dry Neurological: Reports Sensation intact, Motor intact, Cranial nerves intact and Alert Interpretation EKG Interpretation EKG Interpretation By: ED Physician Time of EKG #1: 11:15 Rate: Normal Rhythm: Sinus EKG Comparison: Other (Twelve-lead EKG as read by me shortly after obtaining sinus rate of 73 with slightly prolonged QRS of 1 4 2 ms with a right bundle branch block there are some global nonspecific T wave changes no evidence of acute ischemia or infarct no STEMI) Re-Evaluation Re-Evaluation Time of Re-Evaluation: 12:11 Status: Improved Vital Signs Stable: Yes Pain Level: Improved Skin: Warm and Dry Neuro: Alert and Oriented X3 CV: RRR Additional Comments: Patient CT head neck and chest all negative except for clavicle fracture on the right. No pneumo. Elevated lipase otherwise labs are coming back fairly normal will get CT abdomen and pelvis complaining of left shoulder pain although able to fully AB duct will get x-ray Re-Evaluation Time of Re-Evaluation: 14:50 Status: Improved Vital Signs Stable: Yes Additional Comments: Other than a isolated clavicle fracture on the right with no pneumo the patient's workup is coming back unremarkable other than elevated lipase but normal LFTs. Patient is beginning to remember a little bit more but still has a fair amount of amnesia he has stopped perseverating. Pain is well- controlled at present. He was temporarily placed on oxygen has been removed and vital stable. I do believe the patient should be monitored for at least 24 hours with questionable repeat imaging. Case discussed with [facility] Garett Zarco who agreed will admit During the patients stay in the Emergency Department, and after a physical exam focused on the patients chief complaint. I have concluded that the patients condition warrants inpatient admission/observation at this time. This decision was made in conjunction with testing done in the ED and after discussing the need for admission with the patient and any family present. This decision was made in conjunction with any testing done, physical exam and information provided by the patient and any family present. I took into consideration discharge but feel that either the patients condition, social supports, access to aftercare, and/or safety justify admission at this time. I have discussed this case with the admitting physician Care was assumed by admitting provider at the time the admission request was placed. I was available for emergencies after that point or if specifically identified here: none This chart was completed using voice recognition dictation software. Please excuse any errors of protection mgr including grammatical, punctuation and spelling errors. Please contact me with any questions regarding this chart Critical Care Note Critical Care Note Total Critical Care Time (mins): 60 Comments: I was called to the bedside for urgent evaluation of the patient for an apparent life-threatening event. I arrived to find the patient with increased work of breathing brought in as a head and chest trauma patient During my initial evaluation I found the patient to be critically Ill and in need of my immediate attention to prevent further deterioration of their condition More than one body system was considered at risk with todays visit. The following are the primary systems identified: Cardiac, respiratory, neuro During the patients ED visit I repeated re-evaluated the patient and their clinical condition reviewed laboratory testing and radiology images and intervening when needed. Obtain an immediate chest x-ray to evaluate for any pneumo and CT imaging to evaluate for neck chest or head injury. As a result of the patients clinical condition and presenting problem I arranged for admission for observation The total amount of my Critical Care time during the patients course in the ED was a minimum of 60 minutes, this excluded any time spent on other services or procedures Course Course 06/20/24 11:00 06/20/24 11:00 Orders, Labs, Meds: Lab Review 06/20/24 06/20/24 11:00 13:42 WBC 6.52 RBC 4.69 L Hgb 14.7 Hct 44.6 MCV 95.1 H MCH 31.3 H MCHC 33.0 RDW Coeff of Daja 13.0 Plt Count 190 Immature Gran % (Auto) 0.3 Neut % (Auto) 78.3 H Lymph % (Auto) 12.6 [place] % (Auto) 7.7 Eos % (Auto) 0.6 Baso % (Auto) 0.5 Neut # (Auto) 5.1 Lymph # (Auto) 0.8 [place] # (Auto) 0.5 Eos # (Auto) 0.0 Baso # (Auto) 0.0 Immature Gran # (Auto) 0.0 Sodium 137.3 Potassium 4.05 Chloride 103.7 Carbon Dioxide 21.5 L Anion Gap 16.15 BUN 16.0 Creatinine 1.19 H Estimated GFR (MDRD) 59.00 BUN/Creatinine Ratio 13.44 Glucose 128.6 H Calcium 9.48 Total Bilirubin 1.12 AST 34.8 ALT 27.5 Alkaline Phosphatase 65.8 Troponin I < 0.012 Total Protein 8.18 Albumin 4.85 Globulin 3.33 Albumin/Globulin Ratio 1.45 Lipase 326.6 H SARS CoV-2 RNA Rapid BELLA Negative Orders Category Date Time Status PLACE PATIENT OBSERVATION .TO MEDS[facility] (MONITORED BED ADMISSION 06/20/24 13:31 Active ) EKG-(ED ONLY) Stat CARDIO 06/20/24 10:52 Completed NPO REMINDER: IMAGING ONCE CARE 06/20/24 12:05 Completed TELEMETRY MONITORING TELE CARE 06/20/24 13:31 Active 2 GRAM SODIUM DIET DIETARY 06/20/24 Dinner Ordered CBC W/ AUTO DIFF Stat LAB 06/20/24 11:00 Completed CMP [COMPREHENSIVE METABOLIC PANEL] Stat LAB 06/20/24 11:00 Completed COVID [SARS COV-2 RNA RAPID BELLA] Stat LAB 06/20/24 13:42 Completed LIPASE Stat LAB 06/20/24 11:00 Completed TROPONIN I Stat LAB 06/20/24 11:00 Completed Morphine Sulfate [Morphine 4 mg/ml Syringe] Meds 06/20/24 10:52 Discontinued 4 mg IVP ONCE ONE Ondansetron HCl/Pf [Zofran Sdv] Meds 06/20/24 10:52 Discontinued 4 mg IVP ONCE ONE Sodium Chloride 0.9% [Sodium Chloride] 1,000 ml Meds 06/20/24 11:28 Discontinued IV BOLUS RESUSCITATION STATUS Routine OTHERS 06/20/24 13:31 Ordered CHEST, 1V AP ONLY Stat RADS 06/20/24 10:[address] ABDOMEN/PELVIS WO CONTRAST Stat RADS 06/20/24 12:[address] CERVICAL SPINE W/O CONTRAST Stat RADS 06/20/24 10:[address] CHEST W/O CONTRAST Stat RADS 06/20/24 10:[address] HEAD W/O CONTRAST Stat RADS 06/20/24 10:52 Completed SHOULDER, LEFT MIN 2V Stat RADS 06/20/24 12:04 Completed Medications Generic Name Dose Route Start Last Admin Trade Name Freq PRN Reason Stop Dose Admin Morphine Sulfate 2 mg 06/20/24 15:17 Morphine Sulfate 2 Mg/Ml Syringe IVP Q6H PRN MODERATE PAIN Tramadol HCl 50 mg 06/20/24 15:17 Tramadol Hcl 50 Mg Tablet PO Q6H PRN Analgesia Discontinued Medications Generic Name Dose Route Start Last Admin Trade Name Freq PRN Reason Stop Dose Admin Sodium Chloride 1,000 mls @ 1,000 mls/hr 06/20/24 11:28 06/20/24 14:36 Sodium Chloride IV 06/20/24 12:27 Infused BOLUS ONE Infusion Morphine Sulfate 4 mg 06/20/24 10:52 06/20/24 11:00 Morphine Sulfate 4 Mg/Ml Syringe IVP 06/20/24 10:53 4 mg ONCE ONE Administration Ondansetron HCl 4 mg 06/20/24 10:52 06/20/24 10:58 Ondansetron Hcl/Pf 4 Mg/2 Ml Sdv IVP 06/20/24 10:53 4 mg ONCE ONE Administration Vital Signs: Temp Pulse Resp BP Pulse Ox 06/20/24 10:36 98.0 F 74 30 H 167/94 H 100 Shortly after interviewing and examining the patient, treatment was initiated. Orders were placed for appropriate testing and treatment specific to my findings, appropriate guidelines and the patients complaint (please see physician order section of this chart). The patient was fully exposed, and a trauma primary survey were personally supervised and or conducted by me. A full skeletal survey was conducted. Any issues that were identified on the primary survey was immediately addressed. For documentation of any abnormalities see separate documentation contained in this note. Once appropriate the trauma secondary survey was completed, again for any abnormalities see separate documentation contained in this note Based on the patients chief complaint, and information gathered so far, the following diagnosis were considered. This list is not exhaustive. Acute head injury, acute spinal cord injury, acute orthopedic injury, major organ injury either from penetrating injury or blunt injury. Hollow viscus injury, blood loss, organ failure. Discharge Plan Discharge Patient Disposition: PLACED OBSERVATION Discharge Problem: Head trauma Qualifiers: Encounter type: initial encounter Qualified Code(s): S09.90XA - Unspecified injury of head, initial encounter Fracture closed, clavicle, shaft Qualifiers: Encounter type: initial encounter Fracture alignment: displaced Laterality: r ight Qualified Code(s): S42.021A - Displaced fracture of shaft of right clavicle, initial encounter for closed fracture Did you review [place] [employer] RE[employer]UITER for ALL controlled substances?: Not Applicable ED Provider: MAGGIE STEWART
--- NOTE | 2024-06-20 12:40 | DI ---
EXAM: LEFT SHOULDER RADIOGRAPH; TWO-VIEWS HISTORY: Trauma. COMPARISON: None. FINDINGS/IMPRESSION: No acute fracture. No dislocation. Degenerative changes. Repeat evaluation in 7-10 days recommended if symptoms persist.
--- NOTE | 2024-06-20 13:02 | CT ---
EXAM: CT OF THE ABDOMEN AND PELVIS COMPARISON: None. HISTORY: Elevated lipase. TECHNIQUE: Axial CT images were obtained through the abdomen and pelvis without the administration of intravenous contrast. Coronal and sagittal reformatted images were also submitted for interpretatio n. FINDINGS: Liver: Possible hepatic steatosis. Correlation with LFTs recommended. Gallbladder: No gallstones. Bile ducts: No intra or extrahepatic biliary ductal dilatation. Pancreas: No lesions. The main pancreatic duct is not dilated. Spleen: The spleen is not enlarged. Calcified granulomas. Adrenal glands: Within normal limits. Kidneys: No hydronephrosis. No renal calculi. Ureters: Within normal limits Urinary bladder: Within normal limits Reproductive organs: Prostate measures 4.8 cm demonstrating prostatic fiducials/clips. Peritoneum: No ascites or free intraperitoneal air. Gastrointestinal tract: Normal caliber. Small hiatal hernia. Colonic diverticulosis without eviden ce of acute diverticulitis. Normal appendix. Lymph nodes: No lymphadenopathy. Vessels: Atherosclerosis in the abdominal aorta and branch vessels. No aneurysm. Abdominal wall: Small fat containing bilateral inguinal hernias. Osseous structures: Degenerative changes. Lower thorax: Mild bibasilar atelectasis and/or pneumonitis. Mild cardiomegaly. IMPRESSION: - Lack of IV contrast limits the evaluation for infectious and neoplastic processes. - No evidence of acute pancreatitis. No drainable fluid collections. Pancreatitis is a clinical trever gnosis. - Possible hepatic steatosis. Correlation with LFTs recommended. - Colonic diverticulosis without evidence of acute diverticulitis. - Small hiatal hernia. - Mild bibasilar atelectasis and/or pneumonitis. All CT scans are performed using dose optimization techniques as appropriate to the performed exam an d include at least one of the following: Automated exposure control, adjustment of the mA and/or kV according t o size, and the use of iterative reconstruction technique.
[2024-06-20 14:02] LABS: SARS COV-2 RNA RAPID NAAT NEGATIVE (NEGATIVE)
[2024-06-20] MEDS ORDERED: TYLENOL PO PRN (14:52)
[2024-06-20] MEDS ORDERED: NORCO 5-325 PO PRN (14:52)
--- NOTE | 2024-06-20 15:28 | PCM ---
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 Fell backwards and hit his head on a 2x6. Briefly lost consciousness but is able to recall what happened. AOx4. C/o R shoulder pain. Found to have displaced R midclavicular fracture. Rest of imaging negative for acute findings. All labs within normal limits except lipase mildly above 300. No associated s/sx at this time. Patient denies blurry vision, numbness or tingling to any extremities, no loss of bowel or bladder control. No focal deficits noted. Admitted to med/surg observation. Case Discussed With Case Discussed With: Patient's case was discussed with the ER Physicians, Dr. Ball. 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 Pets and animals: Yes (dog and cat) Do you think of yourself as: straight/heterosexual Current gender identity: male Seatbelt use: always Helmet use: Yes Drives intoxicated or rides with intoxicated electric lift truck driver: No Water heater temperature set < 120 degrees: Yes Working smoke detector in home: Yes Fire extinguisher in home: Yes Carbon monoxide detector in home: Yes Firearms in home: Yes Allergies Allergies Allergy/AdvReac Type Severity Reaction Status Date / Time ibuprofen AdvReac Mild Swelling Verified 06/20/24 10:43 acetaminophen (From Tylenol) AdvReac Swelling Verified 06/20/24 10:43 aspirin AdvReac Swelling Verified 06/20/24 10:43 Current Medications Home Medications Morphine Sulfate (Morphine Sulfate 2 Mg/Ml Syringe) 2 mg IVP Q6H PRN PRN Reason: MODERATE PAIN Tramadol HCl (Tramadol Hcl 50 Mg Tablet) 50 mg PO Q6H PRN PRN Reason: Analgesia Last Admin: 06/20/24 15:30 Dose: 50 mg tramadol 50 mg tablet 1 tab PO TID PRN PAIN 02/08/14 [History Confirmed 06/20/24] ascorbic acid (vitamin C) 500 mg capsule 500 mg PO DAILY 01/26/24 [History Confirmed 06/20/24] colestipol 1 gram tablet 1 g PO ONCE 01/26/24 [History Confirmed 06/20/24] atorvastatin 20 mg tablet 20 mg PO DAILY #90 tabs 04/18/24 [Rx Confirmed 06/20/24] losartan 50 mg tablet 75 mg (1.5 x 50 mg) PO DAILY #135 tabs 06/11/24 [Rx Confirmed 06/20/24] meclizine 12.5 mg tablet 25 mg (2 x 12.5 mg) PO DAILY #30 tabs 06/11/24 [Rx Confirmed 06/20/24] clopidogrel 75 mg tablet 75 mg PO QDAY #90 tabs 06/18/24 [Rx Confirmed 06/20/24] Opioid Naive vs. Tolerant Does Patient Take Opioids?: Yes Is Patient Opioid Naive?: No What is Opioid Naive?: *Opioid Naive implies the patient is not already taking opioids or not chronically receiving opioids on a daily basis. *PRN dosing is not "usually" associated with tolerance. *Patients are at higher risk of over-sedation and aspiration. Is Patient Opioid Tolerant?: No What is Opioid Tolerant?: *Opioid Tolerance implies less than the expected response to an opioid. *Acquired tolerance is defined by the patient taking 60mg of oral morphine daily (or equianalgesic dose of another opioid) for 1 week or more. *Often associated with chronic pain. *May take more than usual dose to achieve desired pain control. Review of Systems Constitutional: Reports No symptoms Head: Reports Normocephalic Eyes: Reports No symptoms Ears: Reports No symptoms Nose: Reports No symptoms Mouth: Reports No symptoms Throat: Reports No symptoms Cardiovascular: Reports Chest pain (from injury) Respiratory: Reports No symptoms Gastrointestinal: Reports No symptoms Genitourinary: Reports No Symptoms Musculoskeletal: Reports Neck Pain (T1-T2) and Other (R shoulder/clavical) Endocrine: Reports No symptoms Hematology: Reports No symptoms Immunology: Reports No symptoms Neurological: Reports Loss of Conciousness (1-2 mins) Physical examination Most Recent Vital Signs: Most Recent Vital Signs Temperature 98.0 F 06/20/24 10:36 Temperature Source Infrared 06/20/24 10:36 Pulse Rate 74 06/20/24 10:36 Respiratory Rate 30 H 06/20/24 10:36 Blood Pressure 167/94 H 06/20/24 10:36 O2 Sat by Pulse Oximetry 100 06/20/24 10:36 Height 5 ft 11 in 06/20/24 10:36 Weight 108.9 kg 06/20/24 10:36 Telemetry Type Remote Telemetry 06/20/24 15:27 Telemetry Monitoring Started 06/20/24 15:27 Telemetry Heart Rate 75 06/20/24 15:27 EKG OK Interval 0.18 06/20/24 15:27 EKG QRS Interval 0.06 06/20/24 15:27 Telemetry Strip Reading NSR 06/20/24 15:27 Appearance: Positive No Apparent Distress and Alert and Oriented x3 Skin: Positive Warm and Good Turgor HEENT: Positive Normocephalic and PERRLA Neck: Positive Supple and Midline Trachea Chest/Lungs: Positive Symmetrical With Equal Breath Sounds, Clear to Auscultation Bilaterally and Good Air Movement all 4 Lung [place] Heart: Positive RRR and Pulses Normal GI/: Positive Soft, Nontender, Bowel Sounds Normal and No Distention Musculoskeletal: Positive Tenderness (R clavicle swelling, pain to T1-T2) and D ecreased ROM (R shoulder d/t clavical) Extremities: Positive Intact Peripheral Pulses, Stable Joints Without Laxity and Good ROM in All Joints Neurological: Positive Sensation Intact, Motor intact, Reflexes Intact, Alert, Oriented, Disorinted and Muscle Strength 5/5 in Upper and Lower Extremities Bilaterally; Negative Focal Deficit Psychiatric: Positive Oriented x4, Appropriate Mood, Appropriate Affect, Intact Memory, Good Short-Term Recall, Good Long-Term Recall, Normal Judgement and Normal Insight Labs This Visit Labs This Visit: Labs This Visit 06/20/24 06/20/24 11:00 13:42 WBC 6.52 RBC 4.69 L Hgb 14.7 Hct 44.6 MCV 95.1 H MCH 31.3 H MCHC 33.0 RDW Coeff of Daja 13.0 Plt Count 190 Immature Gran % (Auto) 0.3 Neut % (Auto) 78.3 H Lymph % (Auto) 12.6 Kent % (Auto) 7.7 Eos % (Auto) 0.6 Baso % (Auto) 0.5 Neut # (Auto) 5.1 Lymph # (Auto) 0.8 [place] # (Auto) 0.5 Eos # (Auto) 0.0 Baso # (Auto) 0.0 Immature Gran # (Auto) 0.0 Sodium 137.3 Potassium 4.05 Chloride 103.7 Carbon Dioxide 21.5 L Anion Gap 16.15 BUN 16.0 Creatinine 1.19 H Estimated GFR (MDRD) 59.00 BUN/Creatinine Ratio 13.44 Glucose 128.6 H Calcium 9.48 Total Bilirubin 1.12 AST 34.8 ALT 27.5 Alkaline Phosphatase 65.8 Troponin I < 0.012 Total Protein 8.18 Albumin 4.85 Globulin 3.33 Albumin/Globulin Ratio 1.45 Lipase 326.6 H SARS CoV-2 RNA Rapid BELLA Negative Imaging Imaging: EXAM: CT OF THE ABDOMEN AND PELVIS FINDINGS: Liver: Possible hepatic steatosis. Correlation with LFTs recommended. Gallbladder: No gallstones. Bile ducts: No intra or extrahepatic biliary ductal dilatation. Pancreas: No lesions. The main pancreatic duct is not dilated. Spleen: The spleen is not enlarged. Calcified granulomas. Adrenal glands: Within normal limits. Kidneys: No hydronephrosis. No renal calculi. Ureters: Within normal limits Urinary bladder: Within normal limits Reproductive organs: Prostate measures 4.8 cm demonstrating prostatic fiducials/clips. Peritoneum: No ascites or free intraperitoneal air. Gastrointestinal tract: Normal caliber. Small hiatal hernia. Colonic diverticulosis without evidence of acute diverticulitis. Normal appendix. Lymph nodes: No lymphadenopathy. Vessels: Atherosclerosis in the abdominal aorta and branch vessels. No aneurysm. Abdominal wall: Small fat containing bilateral inguinal hernias. Osseous structures: Degenerative changes. Lower thorax: Mild bibasilar atelectasis and/or pneumonitis. Mild cardiomegaly. IMPRESSION: - Lack of IV contrast limits the evaluation for infectious and neoplastic processes. - No evidence of acute pancreatitis. No drainable fluid collections. Pancreatitis is a clinical diagnosis. - Possible hepatic steatosis. Correlation with LFTs recommended. - Colonic diverticulosis without evidence of acute diverticulitis. - Small hiatal hernia. - Mild bibasilar atelectasis and/or pneumonitis. EXAM: CERVICAL SPINE CT WITHOUT CONTRAST FINDINGS: Normal cervical lordosis maintained. Scoliosis. Retrolisthesis of C2 on C3 measuring 0.2 cm. Anterolisthesis of C4 on C5 measuring 0.2 cm. Vertebral body heights are maintained. The dens is intact. Lateral masses C1 are well-aligned. No acute fracture. Endplate degenerative changes and mild disc space narrowing at C6-C7 level. No prevertebral soft tissue swelling. Multilevel degenerative spondylosis resulting in varying degrees of spinal canal stenosis and neural foraminal narrowing. Atelectasis and/or pneumonitis in the right lung base. IMPRESSION: No acute fracture. Mild spondylolisthesis likely degenerative in nature. Consider MRI if occult fracture is suspected. EXAM: CT SCAN CHEST WITHOUT CONTRAST FINDINGS: Helically acquired axial images obtained through the thorax without contrast utilizing 5-mm collimation. Sagittal and coronal reconstructions were imaged and reviewed.. The thoracic inlet is unremarkable. The heart is normal in size with coronary ASVD. There are subcentimeter mediastinal lymph nodes. No consolidation or effusion. Minimal scarring versus atelectasis posterior right upper lobe area. There is displaced right midclavicular fracture.. The visualized upper abdominal structures are unremarkable. IMPRESSION: No acute intrathoracic findings. Displaced right midclavicular fracture EXAM: CT HEAD WITHOUT CONTRAST. FINDINGS: There is no intracranial hemorrhage or extraaxial collection. The perez-white differentiation is maintained without evidence for acute large vascular territory infarction. There are areas of periventricular and subcortical white matter low attenuation. The cortical sulci and cerebral ventricles are symmetrically enlarged. The basal cisterns are well visualized. There is no hydrocephalus, mass effect, or midline shift. The paranasal sinuses demonstrate mild mucosal thickening. The mastoid air cells are clear. The calvarium is intact. Since the prior study, there has been no significant interval change. IMPRESSION: 1. No acute intracranial abnormality. 2. Chronic small vessel ischemic changes and atrophy. EXAM: LEFT SHOULDER RADIOGRAPH; TWO-VIEWS FINDINGS/IMPRESSION: No acute fracture. No dislocation. Degenerative changes. Repeat evaluation in 7-10 days recommended if symptoms persist. Review Statement Review Statement: I have independently reviewed and interpreted the labs/EKGs/imaging that were ordered by the ER provider. I have reviewed all outside records that are available currently in our EMR including imaging/notes/labs from previous visits. Plan Plan: 1. Head Injury - no focal deficits, holding anticoagulation, neurochecks Q4H 2. Displaced R midclavicular fracture - tramadol for pain, will add muscle relaxers due to spasms, apply sling, ortho referral upon discharge 3. Elevated lipase - incidental finding, no abd pain or symptoms prior, repeat lipase in am 4. HTN - chronic, continue home medications DVT Prophylaxis: Holding due to recent head injury and risk for brain bleed on Plavix Time Spent: Greater than 80 minutes spent with patient, 50% of the time spent with this patient was devoted to counseling and coordination of care. [facility] minutes spent discussing advance care planning. Disposition: Admit to: Med/Surg Observation Full code Discussed Plan of Care with Dr. Jon Cordova. Medications Medication Orders: Medications Ordered Category Date Time Status Morphine Sulfate [Morphine 2 mg/ml Syringe] Meds 06/20/24 15:17 Active 2 mg IVP Q6H PRN Tramadol HCl [Ultram] Meds 06/20/24 15:17 Active 50 mg PO Q6H PRN
[2024-06-20] MEDS: ULTRAM PO PRN (15:30)
[2024-06-20] MEDS: COLESTID PO SCH (16:42)
[2024-06-20] MEDS: COZAAR PO SCH (16:45)
[2024-06-20] MEDS: LIPITOR PO SCH (16:52)
[2024-06-20] MEDS: MORPHINE 2 MG/ML SYRINGE IVP PRN (18:10)
[2024-06-20] MEDS ORDERED: AMBIEN PO PRN (20:42)
[2024-06-20] MEDS ORDERED: REQUIP PO SCH (21:00)
[2024-06-20 21:34] LABS: BILIRUBIN,URINE Negative (NEGATIVE); CLARITY,URINE Clear (CLEAR); COLOR,URINE Yellow (YELLOW); GLUCOSE, URINE (UA) Negative (NEGATIVE); KETONES,URINE 2+ (NEGATIVE); LEUKOCYTE ESTERASE ,URINE Negative (NEGATIVE); NITRITE,URINE Negative (NEGATIVE); PROTEIN,URINE Negative (NEGATIVE); URINE, BLOOD Negative (NEGATIVE); UROBILINOGEN,URINE 0.2 (0.2)
[2024-06-21 05:36] LABS: BASOPHILS % (AUTO) 0.1 % (0.0-3.0); EOSINOPHILS # (AUTO) 0.1 K/ul (0.0-0.7); EOSINOPHILS % (AUTO) 0.7 % (0.0-7.0); HEMATOCRIT 39.7 % (42.0-52.0); IMMATURE GRANULOCYTE % (AUTO) 0.3 % (0.0-5.0); LYMPHOCYTES # (AUTO) 0.7 K/uL (0.60-3.4); LYMPHOCYTES % (AUTO) 10.1 (10.0-50.0); MEAN CORPUSCULAR HEMOGLOBIN 31.7 pg (27.0-31.0); MEAN CORPUSCULAR HGB CONC 32.7 (31.8-35.4); MEAN CORPUSCULAR VOLUME 96.8 fl (80.0-94.0); MONOCYTES # (AUTO) 0.7 K/uL (0.4-2.0); MONOCYTES % (AUTO) 10.5 (0-10); NEUTROPHILS # (AUTO) 5.4 K/ul (2.0-6.9); NEUTROPHILS % (AUTO) 78.3 % (42.2-75.2); PLATELET COUNT 179 10^3/uL (140-440); RDW COEFFICIENT OF VARIATION 13.3 % (11.6-14.8); WHITE BLOOD COUNT 6.95 K/ul (4.2-10.2)
[2024-06-21 05:50] LABS: ALANINE AMINOTRANSFERASE 21.5 U/L (0-50); ALBUMIN 3.94 g/dL (3.5-5.0); ALKALINE PHOSPHATASE 49.3 U/L (56-119); ASPARTATE AMINO TRANSFERASE 24.8 U/L (17-59); BILIRUBIN,TOTAL 0.99 mg/dL (0.2-1.3); BLOOD UREA NITROGEN 16.6 mg/dL (9-20); CALCIUM 8.43 mg/dL (8.4-10.2); CARBON DIOXIDE 22.8 mmol/L (22-30.0); CHLORIDE 104.5 mmol/L (98-107); CREATININE 1.07 mg/dL (0.60-1.10); GLUCOSE 116.9 mg/dL (74-106); POTASSIUM 3.92 mmol/L (3.5-5.1); SODIUM 133.7 mmol/L (134.5-145); TOTAL PROTEIN 6.79 g/dL (6.3-8.2)
--- NOTE | 2024-06-21 11:45 | MRI ---
EXAM: MRI OF THE CERVICAL SPINE WITHOUT CONTRAST HISTORY: Neck pain, trauma TECHNIQUE: Multiplanar imaging of the cervical spine was performed using T1, T2, inversion recovery, T2 gradient sequences. Comparison CT scan of the cervical spine dated 06/20/2024. FINDINGS: There is straightening of the cervical spine. There is no bone marrow edema. The cranioc ervical junction and prevertebral soft tissues are normal. The cervical spinal cord demonstrates nor mal signal on T2W images. The paraspinal soft tissues are normal. Segmental analysis: C2-C3: There is a broad based central disc protrusion measuring 6 mm AP, 7 mm transverse causing mod erate central canal stenosis and mild flattening of the cervical spinal cord. The neural foramina ap pear patent. C3-C4: The central canal appears patent. There is mild left foraminal stenosis. C4-C5: The central canal appears patent. There is mild to moderate bilateral foraminal stenosis at this level secondary to uncovertebral joint and facet arthritis. C5-C6: The central canal appears patent. There is moderate left and mild right foraminal stenosis a t this level. C6-C7: The central canal appears patent. There is moderate bilateral foraminal stenosis. C7-T1: The central canal and neural foramina appear adequately patent. IMPRESSION: At the C2-C3 level there is a moderate to large central broad-based disc protrusion caus ing moderate central canal stenosis and mild flattening of the cord. Multilevel foraminal stenosis as described above secondary to uncovertebral joint and facet arthritis . No cord signal abnormalities are seen..
--- NOTE | 2024-06-21 14:47 | PCM.PROG ---
Date/Time Seen Date Seen by Provider: 06/21/24 Time Seen by Provider: 08:45 Provider Provider: RILEY HOLLIS, [facility] Chief Complaint Chief Complaint: CHEST TRAUMA, MMOR HEAD TRAUMA W/ PRESERVATION AND Subjective Subjective: Pain worse in back of neck today but tolerable with pain medication. Mild headache. No vision changes or weakness. Mild numbness to tips of fingers. Feels his arms are "heavy". CT cervical spine recommended MRI if concern for occult fracture. will order for today. Objective Appearance: Positive No Apparent Distress and Alert and Oriented x3 Chest/Lungs: Positive Symmetrical With Equal Breath Sounds, Clear to Auscultation Bilaterally and Good Air Movement all 4 Lung [place] Heart: Positive RRR and Pulses Normal GI/: Positive Soft, Nontender, Bowel Sounds Normal and No Distention Musculoskeletal: Positive Tenderness (C2-3 area, R clavicle) Neurological: Positive Sensation Intact, Motor intact, Alert, Oriented and Muscle Strength 5/5 in Upper and Lower Extremities Bilaterally Vital Signs Vital Signs: Vital Signs: Last 24 Hours 06/20/24 14:50 06/20/24 15:04 06/20/24 15:27 Temperature 96.8 F L Temperature Source Oral Pulse Rate 74 Respiratory Rate 22 H Blood Pressure Blood Pressure Mean Blood Pressure Right Arm 178/100 Blood Pressure Location Blood Pressure Position Supine O2 Sat by Pulse Oximetry 94 L Oxygen Delivery Method Room Air Room Air Height 5 ft 10 in Weight 106.2 kg Telemetry Type Remote Telemetry Telemetry Monitoring Started Telemetry Heart Rate 75 EKG FL Interval 0.18 EKG QRS Interval 0.06 Telemetry Strip Reading NSR 06/20/24 16:00 06/20/24 17:00 06/20/24 18:00 Temperature Temperature Source Pulse Rate Respiratory Rate Blood Pressure Blood Pressure Mean Blood Pressure Right Arm Blood Pressure Location Blood Pressure Position O2 Sat by Pulse Oximetry Oxygen Delivery Method Room Air Room Air Room Air Height Weight Telemetry Type Telemetry Monitoring Telemetry Heart Rate EKG FL Interval EKG QRS Interval Telemetry Strip Reading 06/20/24 18:00 06/20/24 19:00 06/20/24 19:00 Temperature 98.5 F Temperature Source Temporal Artery Scan Pulse Rate 97 Respiratory Rate 18 Blood Pressure 164/96 H Blood Pressure Mean 118 Blood Pressure Right Arm Blood Pressure Location Right Arm Blood Pressure Position Supine O2 Sat by Pulse Oximetry 98 Oxygen Delivery Method Room Air Room Air Height Weight Telemetry Type Remote Telemetry Telemetry Monitoring Continues Telemetry Heart Rate 83 EKG FL Interval 0.20 EKG QRS Interval 0.09 Telemetry Strip Reading SR 06/20/24 19:30 06/20/24 20:00 06/20/24 21:00 Temperature Temperature Source Pulse Rate Respiratory Rate 18 Blood Pressure Blood Pressure Mean Blood Pressure Right Arm Blood Pressure Location Blood Pressure Position O2 Sat by Pulse Oximetry Oxygen Delivery Method Room Air Room Air Room Air Height Weight Telemetry Type Telemetry Monitoring Telemetry Heart Rate EKG FL Interval EKG QRS Interval Telemetry Strip Reading 06/20/24 21:46 06/20/24 22:00 06/20/24 23:00 Temperature 98 F Temperature Source Temporal Artery Scan Pulse Rate 76 Respiratory Rate 18 Blood Pressure 144/92 H Blood Pressure Mean 109 Blood Pressure Right Arm Blood Pressure Location Left Arm Blood Pressure Position Supine O2 Sat by Pulse Oximetry 93 L Oxygen Delivery Method Room Air Room Air Room Air Height Weight Telemetry Type Telemetry Monitoring Telemetry Heart Rate EKG FL Interval EKG QRS Interval Telemetry Strip Reading 06/21/24 00:00 06/21/24 01:00 06/21/24 01:00 Temperature Temperature Source Pulse Rate Respiratory Rate Blood Pressure Blood Pressure Mean Blood Pressure Right Arm Blood Pressure Location Blood Pressure Position O2 Sat by Pulse Oximetry Oxygen Delivery Method Room Air Room Air Height Weight Telemetry Type Remote Telemetry Telemetry Monitoring Continues Telemetry Heart Rate 69 EKG FL Interval 0.24 H EKG QRS Interval 0.14 H Telemetry Strip Reading SR WITH 1ST DEGREE AVB & BBB 06/21/24 02:00 06/21/24 02:00 06/21/24 03:00 Temperature 97.5 F L Temperature Source Temporal Artery Scan Pulse Rate 72 Respiratory Rate 18 Blood Pressure 149/92 H Blood Pressure Mean 111 Blood Pressure Right Arm Blood Pressure Location Left Arm Blood Pressure Position Supine O2 Sat by Pulse Oximetry 95 Oxygen Delivery Method Room Air Room Air Room Air Height Weight Telemetry Type Telemetry Monitoring Telemetry Heart Rate EKG FL Interval EKG QRS Interval Telemetry Strip Reading 06/21/24 04:00 06/21/24 05:00 06/21/24 05:11 Temperature 97.3 F L Temperature Source Temporal Artery Scan Pulse Rate 67 Respiratory Rate 18 Blood Pressure 132/87 Blood Pressure Mean 102 Blood Pressure Right Arm Blood Pressure Location Left Arm Blood Pressure Position Supine O2 Sat by Pulse Oximetry 93 L Oxygen Delivery Method Room Air Room Air Room Air Height Weight Telemetry Type Telemetry Monitoring Telemetry Heart Rate EKG FL Interval EKG QRS Interval Telemetry Strip Reading 06/21/24 06:00 06/21/24 07:00 06/21/24 07:00 Temperature Temperature Source Pulse Rate Respiratory Rate Blood Pressure Blood Pressure Mean Blood Pressure Right Arm Blood Pressure Location Blood Pressure Position O2 Sat by Pulse Oximetry Oxygen Delivery Method Room Air Room Air Height Weight Telemetry Type Remote Telemetry Telemetry Monitoring Continues Telemetry Heart Rate 65 EKG FL Interval 0.20 EKG QRS Interval 0.06 Telemetry Strip Reading NSR 06/21/24 08:00 06/21/24 09:00 06/21/24 10:00 Temperature 97.7 F Temperature Source Temporal Artery Scan Pulse Rate 69 Respiratory Rate 18 Blood Pressure 123/78 Blood Pressure Mean 93 Blood Pressure Right Arm Blood Pressure Location Left Arm Blood Pressure Position Sitting O2 Sat by Pulse Oximetry 93 L Oxygen Delivery Method Room Air Room Air Room Air Height Weight Telemetry Type Telemetry Monitoring Telemetry Heart Rate EKG FL Interval EKG QRS Interval Telemetry Strip Reading 06/21/24 10:00 06/21/24 11:00 06/21/24 12:00 Temperature Temperature Source Pulse Rate Respiratory Rate Blood Pressure Blood Pressure Mean Blood Pressure Right Arm Blood Pressure Location Blood Pressure Position O2 Sat by Pulse Oximetry Oxygen Delivery Method Room Air Room Air Room Air Height Weight Telemetry Type Telemetry Monitoring Telemetry Heart Rate EKG FL Interval EKG QRS Interval Telemetry Strip Reading 06/21/24 13:00 06/21/24 13:00 06/21/24 14:00 Temperature Temperature Source Pulse Rate Respiratory Rate Blood Pressure Blood Pressure Mean Blood Pressure Right Arm Blood Pressure Location Blood Pressure Position O2 Sat by Pulse Oximetry Oxygen Delivery Method Room Air Room Air Height Weight Telemetry Type Remote Telemetry Telemetry Monitoring Continues Telemetry Heart Rate 69 EKG FL Interval 0.19 EKG QRS Interval 0.15 H Telemetry Strip Reading SR with BBB 06/21/24 14:00 Temperature 97.4 F L Temperature Source Temporal Artery Scan Pulse Rate 80 Respiratory Rate 18 Blood Pressure Blood Pressure Mean Blood Pressure Right Arm Blood Pressure Location Blood Pressure Position O2 Sat by Pulse Oximetry 91 L Oxygen Delivery Method Room Air Height Weight Telemetry Type Telemetry Monitoring Telemetry Heart Rate EKG FL Interval EKG QRS Interval Telemetry Strip Reading Lab Results Lab Results: Lab Results: Last 24 Hours 06/21/24 06/20/24 05:01 21:22 WBC 6.95 RBC 4.10 L Hgb 13.0 L Hct 39.7 L MCV 96.8 H MCH 31.7 H MCHC 32.7 RDW Coeff of Daja 13.3 Plt Count 179 Immature Gran % (Auto) 0.3 Neut % (Auto) 78.3 H Lymph % (Auto) 10.1 [place] % (Auto) 10.5 H Eos % (Auto) 0.7 Baso % (Auto) 0.1 Neut # (Auto) 5.4 Lymph # (Auto) 0.7 [place] # (Auto) 0.7 Eos # (Auto) 0.1 Baso # (Auto) 0.0 Immature Gran # (Auto) 0.0 Sodium 133.7 L Potassium 3.92 Chloride 104.5 Carbon Dioxide 22.8 Anion Gap 10.32 BUN 16.6 Creatinine 1.07 Estimated GFR (MDRD) 67.00 BUN/Creatinine Ratio 15.51 Glucose 116.9 H Calcium 8.43 Total Bilirubin 0.99 AST 24.8 ALT 21.5 Alkaline Phosphatase 49.3 L Total Protein 6.79 Albumin 3.94 Globulin 2.85 Albumin/Globulin Ratio 1.38 Urine Color Yellow Urine Clarity Clear Urine pH 7.0 Ur Specific [place] 1.025 Urine Protein Negative Urine Glucose (UA) Negative Urine Ketones 2+ H Urine Blood Negative Urine Nitrite Negative Urine Bilirubin Negative Urine Urobilinogen 0.2 Ur Leukocyte Esterase Negative Additional Comments Additional Comments: I have independently reviewed and interpreted the labs/EKGs/imaging ordered during this hospital stay. I have reviewed outside records that are available in our EMR that pertain to medical stay including imaging/notes/labs from previous visits. Active Medications Active Medications: Medications Generic Name Dose Route Start Last Admin Trade Name Freq PRN Reason Stop Dose Admin Atorvastatin Calcium 20 mg 06/20/24 16:30 06/21/24 08:17 Atorvastatin Calcium 20 Mg Tablet PO 20 mg DAILY JONO Administration Colestipol HCl 1 gm 06/20/24 16:25 06/21/24 08:17 Colestipol Hcl 1 Gm Tablet PO 1 gm DAILY JONO Administration Losartan Potassium 75 mg 06/20/24 16:25 06/21/24 08:17 Losartan Potassium 25 Mg Tablet PO 75 mg DAILY JONO Administration Morphine Sulfate 2 mg 06/20/24 15:17 06/21/24 12:27 Morphine Sulfate 2 Mg/Ml Syringe IVP 2 mg Q6H PRN Administration MODERATE PAIN Sodium Chloride 1 syr 06/20/24 21:00 06/21/24 12:52 0.9% Sodium Chloride 10 Ml Disp.Syrin IVF 1 syr Q8HR JONO Administration Sodium Chloride 1 syr 06/20/24 18:05 0.9% Sodium Chloride 10 Ml Disp.Syrin IVF PRN PRN Maintain IV Patency Tizanidine HCl 4 mg 06/20/24 20:45 Tizanidine Hcl 4 Mg Tablet PO TID PRN Spasms Tramadol HCl 50 mg 06/20/24 15:17 06/21/24 13:51 Tramadol Hcl 50 Mg Tablet PO 50 mg Q6H PRN Administration Analgesia Plan Plan: 1. Head Injury - no focal deficits, holding anticoagulation, neurochecks Q4H, MRI on neck today due to continued pain. 2. Displaced R midclavicular fracture - tramadol for pain, muscle relaxers due to spasms, apply sling, ortho referral upon discharge 3. Elevated lipase - incidental finding, no abd pain or symptoms prior, repeat lipase in am 4. HTN - chronic, continue home medications DVT Prophylaxis: Holding due to recent head injury and risk for brain bleed on Plavix Review Statement Review Statement: I have personally discussed and reviewed the patient's visit/currently labs/imaging/decision making with Dr. Cordova, my supervising attending. Greater that 50 minutes spent with patient, 50% of the time spent with this patient was devoted to counseling and coordination of care. Additional Additional Information: EXAM: MRI OF THE CERVICAL SPINE WITHOUT CONTRAST HISTORY: Neck pain, trauma TECHNIQUE: Multiplanar imaging of the cervical spine was performed using T1, T2, inversion recovery, T2 gradient sequences. Comparison CT scan of the cervical spine dated 06/20/2024. FINDINGS: There is straightening of the cervical spine. There is no bone marrow edema. The craniocervical junction and prevertebral soft tissues are normal. The cervical spinal cord demonstrates normal signal on T2W images. The paraspinal soft tissues are normal. Segmental analysis: C2-C3: There is a broad based central disc protrusion measuring 6 mm AP, 7 mm transverse causing moderate central canal stenosis and mild flattening of the cervical spinal cord. The neural foramina appear patent. C3-C4: The central canal appears patent. There is mild left foraminal stenosis. C4-C5: The central canal appears patent. There is mild to moderate bilateral foraminal stenosis at this level secondary to uncovertebral joint and facet arthritis. C5-C6: The central canal appears patent. There is moderate left and mild right foraminal stenosis at this level. C6-C7: The central canal appears patent. There is moderate bilateral foraminal stenosis. C7-T1: The central canal and neural foramina appear adequately patent. IMPRESSION: At the C2-C3 level there is a moderate to large central broad-based disc protrusion causing moderate central canal stenosis and mild flattening of the cord. Multilevel foraminal stenosis as described above secondary to uncovertebral joint and facet arthritis. No cord signal abnormalities are seen.. Contacting neuro for further recommendations/follow-up outpatient before discharging patient. Initially contacted [facility] and denied stating incapable to deal with this and recommended tertiary care facility ie [place]. Spoke with family and requested [place]. Neuro denied due to distance of travel and no need for IP management. In process of contacting [facility] for consult.
[2024-06-22 06:09] LABS: BASOPHILS % (AUTO) 0.3 % (0.0-3.0); EOSINOPHILS # (AUTO) 0.1 K/ul (0.0-0.7); EOSINOPHILS % (AUTO) 1.3 % (0.0-7.0); HEMATOCRIT 38.1 % (42.0-52.0); HEMOGLOBIN 12.3 g/dl (14.0-18.0); IMMATURE GRANULOCYTE % (AUTO) 0.4 % (0.0-5.0); LYMPHOCYTES # (AUTO) 0.6 K/uL (0.60-3.4); LYMPHOCYTES % (AUTO) 9.4 (10.0-50.0); MEAN CORPUSCULAR HEMOGLOBIN 31.5 pg (27.0-31.0); MEAN CORPUSCULAR HGB CONC 32.3 (31.8-35.4); MEAN CORPUSCULAR VOLUME 97.7 fl (80.0-94.0); MONOCYTES # (AUTO) 0.8 K/uL (0.4-2.0); MONOCYTES % (AUTO) 11.3 (0-10); NEUTROPHILS # (AUTO) 5.3 K/ul (2.0-6.9); NEUTROPHILS % (AUTO) 77.3 % (42.2-75.2); PLATELET COUNT 149 10^3/uL (140-440); RDW COEFFICIENT OF VARIATION 13.5 % (11.6-14.8)
[2024-06-22 06:42] LABS: ALBUMIN 3.4 g/dL (3.5-5.0); BILIRUBIN,TOTAL 0.8 mg/dL (0.2-1.3); CALCIUM 8.3 mg/dL (8.4-10.2); POTASSIUM 3.9 mmol/L (3.5-5.1); TOTAL PROTEIN 6.2 g/dL (6.3-8.2)
[2024-06-22] MEDS: ZANAFLEX PO PRN (08:32)
[2024-06-22] MEDS: OXYCODONE PO PRN (09:56)
[2024-06-22 10:40] VITALS: BP 113/73; PULSE 75; RESP 16; TEMP 97.9
--- NOTE | 2024-06-22 10:55 | DCSUM ---
Admission Date Admission Date: 06/20/24 Discharge Date Discharge Date: 06/22/24 Admission Diagnosis Admission Diagnosis: 1. Head Injury - no focal deficits, holding anticoagulation, neurochecks Q4H 2. Displaced R midclavicular fracture Discharge Diagnosis Discharge Diagnosis: 1. Head Injury - no focal deficits, head CT negative 2. Displaced R midclavicular fracture - Stable, Follow-up with Orthopedics, sling in place 3. C2-C3 disc protrusion with stenosis and mild spinal cord flattening - Follow- up with Neurology 4. Elevated lipase - incidental finding, no abd pain or symptoms 5. HTN - chronic, stable Hospital Provider Hospital Provider: RILEY HOLLIS, 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 Fell backwards and hit his head on a 2x6. Briefly lost consciousness but is able to recall what happened. AOx4. C/o R shoulder pain. Found to have displaced R midclavicular fracture. Rest of imaging negative for acute findings. All labs within normal limits except lipase mildly above 300. No associated s/sx at this time. Patient denies blurry vision, numbness or tingling to any extremities, no loss of bowel or bladder control. No focal deficits noted. Admitted to med/surg observation. Hospital Course Subjective: During stay, patient was monitor for neurological deficits with neuro checks Q4H. No deficits noted. Numbness present to finger tips and tenderness to cervical area morning after accident. MRI completed and showed C2-3 disc protrusion with canal stenosis and mild spinal cord flattening. Spoke with [facility] for consult. David Ozuna APRN with [facility], and [facility] is agreeable to see patient in the office upon discharge. Sling applied to R arm due to clavical fracture. Swelling present on admission improving. Pain treated with home tramadol and morphine initially. Added zanaflex and oxycodone due to continued pain. Discussed oxycodone could be used if tramadol is not effective. Patient unable to take tylenol, ASA, and ibuprofen due to allergies. Referrals sent to [facility] and [facility]. Follow-up with PCP next week. Resume plavix tomorrow. Rx sent for zanaflex and oxycodone. Appearance: Pleasant, No Apparent Distress and Alert HEENT: MMM, Supple and No JVD CVS: No Murmur, No Rubs and No Gallop Abdomen: Soft, Non-Tender and No Distention Respiratory: No Dyspnea Extremities: No Edema Additional Findings: Sling to R arm, mild swelling to R clavicle Vital Signs: Most Recent Vital Signs Temperature 97.9 F 06/22/24 10:00 Temperature Source Temporal Artery Scan 06/22/24 10:00 Temperature Source Infrared 06/20/24 10:36 Pulse Rate 75 06/22/24 10:00 Respiratory Rate 16 06/22/24 10:00 Blood Pressure 113/73 06/22/24 10:00 Blood Pressure Mean 86 06/22/24 10:00 Blood Pressure Right Arm 178/100 06/20/24 15:04 Blood Pressure Location Left Arm 06/22/24 10:00 Blood Pressure Position Supine 06/22/24 05:06 O2 Sat by Pulse Oximetry 97 06/22/24 10:00 Oxygen Delivery Method Room Air 06/22/24 10:00 Oxygen Flow Rate 91 06/21/24 22:00 Height 5 ft 10 in 06/20/24 15:04 Weight 106.2 kg 06/20/24 15:04 Telemetry Type Remote Telemetry 06/22/24 07:00 Telemetry Monitoring Continues 06/22/24 07:00 Telemetry Heart Rate 70 06/22/24 07:00 EKG VT Interval 0.19 06/22/24 07:00 EKG QRS Interval 0.07 06/22/24 07:00 Telemetry Strip Reading SR with PAC 06/22/24 07:00 Imaging: EXAM: CT OF THE ABDOMEN AND PELVIS FINDINGS: Liver: Possible hepatic steatosis. Correlation with LFTs recommended. Gallbladder: No gallstones. Bile ducts: No intra or extrahepatic biliary ductal dilatation. Pancreas: No lesions. The main pancreatic duct is not dilated. Spleen: The spleen is not enlarged. Calcified granulomas. Adrenal glands: Within normal limits. Kidneys: No hydronephrosis. No renal calculi. Ureters: Within normal limits Urinary bladder: Within normal limits Reproductive organs: Prostate measures 4.8 cm demonstrating prostatic fiducials/clips. Peritoneum: No ascites or free intraperitoneal air. Gastrointestinal tract: Normal caliber. Small hiatal hernia. Colonic diverticulosis without evidence of acute diverticulitis. Normal appendix. Lymph nodes: No lymphadenopathy. Vessels: Atherosclerosis in the abdominal aorta and branch vessels. No aneurysm. Abdominal wall: Small fat containing bilateral inguinal hernias. Osseous structures: Degenerative changes. Lower thorax: Mild bibasilar atelectasis and/or pneumonitis. Mild cardiomegaly. IMPRESSION: - Lack of IV contrast limits the evaluation for infectious and neoplastic processes. - No evidence of acute pancreatitis. No drainable fluid collections. Pancreatitis is a clinical diagnosis. - Possible hepatic steatosis. Correlation with LFTs recommended. - Colonic diverticulosis without evidence of acute diverticulitis. - Small hiatal hernia. - Mild bibasilar atelectasis and/or pneumonitis. EXAM: CERVICAL SPINE CT WITHOUT CONTRAST FINDINGS: Normal cervical lordosis maintained. Scoliosis. Retrolisthesis of C2 on C3 measuring 0.2 cm. Anterolisthesis of C4 on C5 measuring 0.2 cm. Vertebral body heights are maintained. The dens is intact. Lateral masses C1 are well-aligned. No acute fracture. Endplate degenerative changes and mild disc space narrowing at C6-C7 level. No prevertebral soft tissue swelling. Multilevel degenerative spondylosis resulting in varying degrees of spinal canal stenosis and neural foraminal narrowing. Atelectasis and/or pneumonitis in the right lung base. IMPRESSION: No acute fracture. Mild spondylolisthesis likely degenerative in nature. Consider MRI if occult fracture is suspected. EXAM: CT SCAN CHEST WITHOUT CONTRAST FINDINGS: Helically acquired axial images obtained through the thorax without contrast utilizing 5-mm collimation. Sagittal and coronal reconstructions were imaged and reviewed.. The thoracic inlet is unremarkable. The heart is normal in size with coronary ASVD. There are subcentimeter mediastinal lymph nodes. No consolidation or effusion. Minimal scarring versus atelectasis posterior right upper lobe area. There is displaced right midclavicular fracture.. The visualized upper abdominal structures are unremarkable. IMPRESSION: No acute intrathoracic findings. Displaced right midclavicular fracture EXAM: CT HEAD WITHOUT CONTRAST. FINDINGS: There is no intracranial hemorrhage or extraaxial collection. The perez-white differentiation is maintained without evidence for acute large vascular territory infarction. There are areas of periventricular and subco rtical white matter low attenuation. The cortical sulci and cerebral ventricles are symmetrically enlarged. The basal cisterns are well visualized. There is no hydrocephalus, mass effect, or midline shift. The paranasal sinuses demonstrate mild mucosal thickening. The mastoid air cells are clear. The calvarium is intact. Since the prior study, there has been no significant interval change. IMPRESSION: 1. No acute intracranial abnormality. 2. Chronic small vessel ischemic changes and atrophy. EXAM: LEFT SHOULDER RADIOGRAPH; TWO-VIEWS FINDINGS/IMPRESSION: No acute fracture. No dislocation. Degenerative changes. Repeat evaluation in 7-10 days recommended if symptoms persist. EXAM: MRI OF THE CERVICAL SPINE WITHOUT CONTRAST FINDINGS: There is straightening of the cervical spine. There is no bone marrow edema. The craniocervical junction and prevertebral soft tissues are normal. The cervical spinal cord demonstrates normal signal on T2W images. The paraspinal soft tissues are normal. Segmental analysis: C2-C3: There is a broad based central disc protrusion measuring 6 mm AP, 7 mm transverse causing moderate central canal stenosis and mild flattening of the cervical spinal cord. The neural foramina appear patent. C3-C4: The central canal appears patent. There is mild left foraminal stenosis. C4-C5: The central canal appears patent. There is mild to moderate bilateral foraminal stenosis at this level secondary to uncovertebral joint and facet arthritis. C5-C6: The central canal appears patent. There is moderate left and mild right foraminal stenosis at this level. C6-C7: The central canal appears patent. There is moderate bilateral foraminal stenosis. C7-T1: The central canal and neural foramina appear adequately patent. IMPRESSION: At the C2-C3 level there is a moderate to large central broad-based disc protrusion causing moderate central canal stenosis and mild flattening of the cord. Multilevel foraminal stenosis as described above secondary to uncovertebral joint and facet arthritis. No cord signal abnormalities are seen.. Lab Results Last 24 Hours: 06/22/24 06:03 WBC 6.80 RBC 3.90 L Hgb 12.3 L Hct 38.1 L MCV 97.7 H MCH 31.5 H MCHC 32.3 RDW Coeff of Daja 13.5 Plt Count 149 Immature Gran % (Auto) 0.4 Neut % (Auto) 77.3 H Lymph % (Auto) 9.4 L Hyde % (Auto) 11.3 H Eos % (Auto) 1.3 Baso % (Auto) 0.3 Neut # (Auto) 5.3 Lymph # (Auto) 0.6 Hyde # (Auto) 0.8 Eos # (Auto) 0.1 Baso # (Auto) 0.0 Immature Gran # (Auto) 0.0 Sodium 135.0 Potassium 3.90 Chloride 107.0 Carbon Dioxide 25.0 Anion Gap 6.90 BUN 21.0 H Creatinine 1.00 Estimated GFR (MDRD) 72.00 BUN/Creatinine Ratio 21.00 Glucose 112.0 H Calcium 8.30 L Total Bilirubin 0.80 AST 33.0 ALT 20.0 Alkaline Phosphatase 53.0 L Total Protein 6.20 L Albumin 3.40 L Globulin 2.80 Albumin/Globulin Ratio 1.21 Discharge Instructions Discharge Planning: Discharge Planning > 40 minutes If patient is discharged with left ventricular systolic dysfunction: No Discharged with a beta ángel? [] If no, why not? [] Discharged with an lillie/arb? [] If no, why not? [] Diagnosis: Head Injury; C2-3 Disc Protrusion, R Clavicle Fracture Diet: Regular Activity: as tolerated Medications: You have 2 Prescriptions transmitted to [facility] you will need to strip picker. 1 - Oxycodone 5mg. by mouth every 4 hours as needed for pain not controlled by Ultram. Last taken at 0955 2 - Tizanidine 4mg. by mouth 3 times a day as needed for muscle spasm, Last taken 0832 You have been referred to [facility]. They will be in contact with you to initiate care. If you have any questions or need to speak with them, their contact number is [phone]. You have been referred to [facility]. They will be in contact with you to initiate care. If you have any questions or need to speak with them, their contact number is [phone]. Discharge Medications: RX At Discharge oxycodone 5 mg tablet 5 mg PO Q4H PRN pain #30 tabs 06/22/24 [Rx] tizanidine 4 mg tablet 4 mg PO TID PRN spasms #30 tabs 06/22/24 [Rx] Discharge Plan Discharge Discharge Orders: Discharge Patient (ONCE); Ordered 06/22/24 Ordered By: MARIO HORTON Activity Restrictions/Additional Instructions: Diagnosis: Head Injury; C2-3 Disc Protrusion, R Clavicle Fracture Diet: Regular Activity: as tolerated Medications: You have 2 Prescriptions transmitted to [facility] you will need to strip picker. 1 - Oxycodone 5mg. by mouth every 4 hours as needed for pain not controlled by Ultram. Last taken at 0955 2 - Tizanidine 4mg. by mouth 3 times a day as needed for muscle spasm, Last taken 0832 You have been referred to [facility]. They will be in contact with you to initiate care. If you have any questions or need to speak with them, their contact number is [phone]. You have been referred to [facility]. They will be in contact with you to initiate care. If you have any questions or need to speak with them, their contact number is [phone]. Be sure to take your Radiology Disc with you to your appointments listed above Instructions: Oxycodone, Rapid Release (By mouth), Tizanidine (By mouth), Clavicle Fracture (GEN), Head Injury (GEN), Cervical Spinal Stenosis (GEN) Patient Disposition: HOME WITH FAMILY CARE Prescriptions: New tizanidine 4 mg Tablet 4 mg PO TID PRN (Reason: spasms) Qty: 30 0RF oxycodone 5 mg Tablet 5 mg PO Q4H PRN (Reason: pain) Qty: 30 0RF Continued atorvastatin 20 mg tablet 20 mg PO DAILY Qty: 90 2RF clopidogrel 75 mg tablet 75 mg PO QDAY Qty: 90 2RF tramadol 50 MG tablet 1 tab PO TID PRN (Reason: PAIN) colestipol 1 gram tablet 1 g PO ONCE ascorbic acid (vitamin C) 500 mg capsule 500 mg PO DAILY meclizine 12.5 mg tablet 25 mg PO DAILY Qty: 30 3RF losartan 50 mg tablet 75 mg PO DAILY Qty: 135 1RF Did you review [place] [employer] for ALL controlled substances?: No Discussed opioids are addictive and Narcan is available by prescription or from pharmacy.: No Referrals: FLORECITA DE LA TORRE MD [Primary Care Provider] - 06/28/24 1:15 pm
== END 2024-06-22 13:00 | disposition home or self-care (01) ==
LOC: MEDSURG B 10:27 → ED 10:27 → MEDSURG B 14:45
PROVIDERS: ADMIT Hospitalist; ATTEND Nurse Practitioner Family